=== PATIENT | female | born 1945 | race Caucasian/White ===

== ENCOUNTER 2023-06-05 10:33 | Emergency (ER) | payer MEDICARE, SELFPAY ==
[2023-06-05] VITALS (9 sets, daily range): BP systolic 176–189; BP diastolic 83–91; PULSE 85–92; RESP 14–18; TEMP 36.6; O2SAT 92–97; BMI 28.3
--- NOTE | 2023-06-05 10:57 | DI.CT.S_ITS ---
PROCEDURE: CT HEAD/BRAIN WO CON INDICATIONS: pain right post head / h/o HHT TECHNIQUE: Noncontrast 4.5 mm thick angled axial sections acquired from the foramen magnum to the vertex, with coronal and sagittal reformats. For radiation dose reduction, the following was used: automated exposure control, adjustment of mA and/or kV according to patient size. COMPARISON: None. FINDINGS: Image quality: Excellent. CSF spaces: Basal cisterns are patent. No extra-axial fluid collections. The ventricles are symmetric in size and shape. Brain: No intracranial bleeds or masses. There is cerebral volume loss for age, with resultant ventricular and sulcal prominence. There are moderate periventricular and deep white matter chronic small vessel ischemic changes. There is intracranial internal carotid artery atherosclerosis. Skull and face: Calvarium and visualized facial bones appear intact, without suspicious lesions. Sinuses: Visualized sinuses and mastoids are clear. IMPRESSION: 1. Age-related volume loss and moderate small vessel ischemic change. 2. No acute intracranial abnormality. Dictated by: Semaj Rust M.D. on 06/05/2023 at 11:09 Approved by: Semaj Rust M.D. on 06/05/2023 at 11:09
[2023-06-05] MEDS: methylPREDNISolone 125 MG/2 ML VIAL IV (11:58)
[2023-06-05 11:59] LABS: Add Manual Diff / Slide Review NO; Basophils Absolute Auto 0 /uL (0-100); Basophils Percent Auto 0.5 % (0-2); Eosinophils Absolute Auto 0 /uL (0-450); Eosinophils Percent Auto 0.6 % (2-4); Hematocrit 37.8 % (36-46); Hemoglobin 12.5 g/dL (12.0-16.0); Lymphocytes Absolute Auto 800 /uL (1100-4500); Mean Corpuscular HGB Conc 33.1 % (30-36); Mean Corpuscular Hemoglobin 32.9 PG (26-34); Mean Corpuscular Volume 99.3 fL (80-100); Monocytes Absolute Auto 500 /uL (0-900); Monocytes Percent Auto 8.6 % (3-14); Neutrophils Absolute Auto 4500 /uL (1500-7000); Neutrophils Percent Auto 76.3 % (50-75); Platelet Count 212 X10^3/uL (150-400); Red Blood Cell Count 3.81 X10^6/uL (4.0-5.2); Red Cell Distribution Width 15.5 % (11.6-14.8); White Blood Cell Count 5.9 X10^3/uL (4.5-11.0)
[2023-06-05] MEDS: diphenhydrAMINE 50 MG/ML VIAL 25 MG IV (12:00)
[2023-06-05] MEDS: FAMOTIDINE 20 MG/2 ML VIAL IV (12:02)
[2023-06-05 12:13] LABS: Blood Urea Nitrogen 14 mg/dL (7-17); Calcium 9.9 mg/dL (8.4-10.2); Carbon Dioxide 28 mmol/L (22-32); Chloride 102 mmol/L (98-107); Estimated Glomerular Filt Rate > 60 mL/min (>60); Glucose 124 mg/dL (80-110); HEMOLYSIS < 15 (0-50); Potassium 3.3 mmol/L (3.4-5.1); Sodium 137 mmol/L (137-145)
--- NOTE | 2023-06-05 12:43 | DI.CT.S_ITS ---
PROCEDURE: CT ANGIO HEAD AND NECK INDICATIONS: severe headache, hx of HHT TECHNIQUE: After the administration of intravenous contrast, 1 mm thick sections acquired from the aortic arch through the [place] of [place]. Post-contrast 4.5 mm thick sections then re-acquired from the foramen magnum to the vertex. 3-dimensional bdlploj-lcjzabnel-lisouqjdjr (MIP) and/or volume rendering reformats were acquired of the central intracranial vasculature and neck separately. For radiation dose reduction, the following was used: automated exposure control, adjustment of mA and/or kV according to patient size. COMPARISON: [facility], CT, CT HEAD/BRAIN WO CON, 06/05/2023, 11:04. FINDINGS: Image quality: Excellent. BRAIN: CSF spaces: Ventricles are normal in size and shape. Basal cisterns are patent. No extra-axial fluid collections. Brain: No midline shift. No intracranial bleeds or masses. Farfan-white matter interface appears intact. Age-related volume loss and moderate small vessel ischemic change. Skull and face: Calvarium and facial bones appear intact, without suspicious lesions. Orbits appear normal. Sinuses: Sinuses and mastoids are clear. HEAD CT ANGIOGRAPHY: Anterior circulation: Intracranial internal carotid arteries are normal in size and flow. The flow within the paired anterior cerebral arteries is normal and symmetric. The flow within the middle cerebral arteries is normal and symmetric. The anterior communicating artery is seen. No aneurysms are seen. Posterior circulation: Visualized portions of the vertebral arteries demonstrate normal caliber, and join to form a normal appearing basilar artery. Flow within the posterior cerebral arteries is normal and symmetric. No aneurysms are seen. NECK CT ANGIOGRAPHY: Carotid system: The great vessels demonstrate a conventional anatomy as they arise from the aortic arch. The origins of the common carotid arteries appear patent. The common carotid arteries demonstrate normal caliber and courses. The bifurcation regions are both widely patent. The internal carotid arteries demonstrate normal calibers and courses. Posterior circulation: The origins of the vertebral arteries both appear widely patent. The more superior extracranial portions of both vertebral arteries also demonstrate normal courses and calibers. They join to form a normal appearing basilar artery. Soft tissues: Visualized neck soft tissues demonstrate no suspicious abnormalities. Bones: No suspicious bony lesions. Visualized cervical spine appears normally aligned. IMPRESSION: 1. Age-related volume loss and moderate small vessel ischemic change. 2. No acute intracranial abnormality. 3. Unremarkable CTA head. No stenosis, aneurysm, occlusion, or focal filling defect. 4. Patent carotids. Any quantitative measurements of stenosis were performed using NASCET criteria. Dictated by: Semaj Rust M.D. on 06/05/2023 at 13:00 Approved by: Semaj Rust M.D. on 06/05/2023 at 13:03
[2023-06-05] MEDS: CYCLOBENZAPRINE 10 MG TABLET PO (13:58)
[2023-06-05] MEDS: LIDOCAINE PATCH 1 EACH ADH..PATCH TOP (13:59)
--- NOTE | 2023-06-06 06:09 | ED_ITS ---
HPI - Headache General Chief Complaint: Headache Stated Complaint: pain in the back of the head; physicial referral Time Seen by Provider: 06/05/23 11:16 Mode of arrival: Ambulatory History of Present Illness HPI Narrative: 78-year-old female nonsmoker with history of HHT presents with a chief complaint of a right posterior headache that has been present for the past few days. She was sent here by her primary care provider for evaluation. She states she has had no trauma or injury and takes no blood thinners. She denies any fever or chills. She denies associated symptoms such as dizziness, weakness or lightheadedness. She denies any lower extremity numbness, tingling or weakness. She has no blurred vision or trouble with speech. She states that she feels a sharp and stabbing pain in the right side of her neck and right side of her head that is worse when she turns her head to the left or if she touches the muscles of her neck. As noted she does have a history of HHT which has historically only presented in her nasal passages and has previously been addressed by ear nose and throat. She states that when present her pain is quite severe and when she can find the right position her symptoms essentially resolved Related Data Previous Rx's Medication Instructions Recorded cyclobenzaprine 10 mg tablet 10 mg PO TID PRN muscle spasm #14 06/05/23 tabs Allergies Allergy/AdvReac Type Severity Reaction Status Date / Time Iodinated Contrast Media Allergy Severe Hives Verified 06/05/23 10:52 aspirin Allergy Unknown Verified 06/05/23 10:52 cilastatin Allergy Unknown Verified 06/05/23 10:52 clindamycin Allergy Unknown Verified 06/05/23 10:52 imipenem Allergy Unknown Verified 06/05/23 10:52 levofloxacin [From Levaquin] Allergy Unknown Verified 06/05/23 10:52 NSAIDS (Non-Steroidal Allergy Unknown Verified 06/05/23 10:52 Anti-Inflamma oxycodone Allergy Unknown Verified 06/05/23 10:52 Penicillins Allergy Unknown Verified 06/05/23 10:52 Sulfa (Sulfonamide Allergy Unknown Verified 06/05/23 10:52 Antibiotics) succinylcholine AdvReac Unknown Verified 06/05/23 10:52 Review of Systems Review of Systems Narrative: GENERAL: See HPI HEENT: Denies sinus pain, ear pain, sore throat, difficulty swallowing, dizziness. RESPIRATORY: Denies dyspnea, cough, wheezing, hemoptysis, sputum. CARDIOVASCULAR: Denies chest pain, palpitations, orthopnea, edema, GASTROINTESTINAL: Denies nausea, vomiting, abdominal pain, diarrhea, constipation, melena. : Denies dysuria, frequency, incontinence, hematuria, urinary retention. MUSCULOSKELETAL: denies weakness, joint pain, or bony pain SKIN: Denies rash, skin lesions, or other NEUROLOGIC: See HPI PSYCHIATRIC: No concerning psychosocial issues. 12 point review of systems is negative except for those stated above Patient History Medical History HHT (hereditary hemorrhagic telangiectasia) Social History Smoking Status: Never smoker Smoking Status: Never smoker alcohol intake frequency: 0-2 drinks per day Substance Use Type: does not use Exam Narrative Exam Narrative: GENERAL: [78] year old patient appears stated age. Well-developed patient, in mild distress. GCS 15 HEAD: Atraumatic. Normocephalic. Tender to palpation at the nuchal ridge and along the distribution of right-sided paraspinal musculature EYES: Pupils equal round and reactive. Extraocular motions intact. No scleral icterus. No injection or drainage. ENT: Nose without bleeding, purulent drainage. Throat without erythema, tonsillar hypertrophy or exudate. Airway patent. NECK: Trachea midline. As noted above tender along the right-sided paraspinal musculature into their insertion at the right-sided nuchal ridge. No pain on left side of neck. Negative Kernig sign. CARDIOVASCULAR: Regular rate and rhythm without murmurs, gallops, or rubs. RESPIRATORY: Clear to auscultation. Breath sounds equal bilaterally. No wheezes, rales, or rhonchi. GASTROINTESTINAL: Abdomen soft, non-tender, nondistended. EXTREMITIES: No edema or joint tenderness. BACK: Nontender without deformity or crepitance. No flank tenderness. NEURO: AOx3. SKIN: No rash or erythema of visible areas NIH Stroke Scale 1a. LOC: Patient is alert and keenly responsive (0) 1b. LOC Questions: Patient answers both LOC questions accurately (0) 1c. LOC Commands: Patient performs both tasks correctly (0) 2. Best Gaze: Normal (0) 3. Visual: No visual loss (0) 4. Facial palsy: Normal symmetrical movements (0) 5. Motor arm: No drift (0) 6. Motor leg: No drift (0) 7. Limb ataxia: Absent (0) 8. Sensory: Normal (0) 9. Best language: No aphasia; normal (0) 10. Dysarthria: Normal (0) 11. Extinction and inattention: No abnormality (0) NIHSS: 0 Initial Vital Signs Initial Vital Signs: Vital Signs Temperature 97.8 F 06/05/23 10:44 Pulse Rate 92 H 06/05/23 10:44 Respiratory Rate 14 06/05/23 10:44 Blood Pressure 189/83 H 06/05/23 10:44 Pulse Oximetry 97 06/05/23 10:44 Oxygen Delivery Method Room Air 06/05/23 10:44 Course Orders Ordered: Discontinued Medications Cyclobenzaprine HCl (Cyclobenzaprine 10 Mg Tablet) 10 mg PO NOW ONE Stop: 06/05/23 13:47 Last Admin: 06/05/23 13:58 Dose: 10 mg Documented By: ANALIA Diphenhydramine HCl (Diphenhydramine 50 Mg/Ml Vial) 25 mg IV NOW ONE Stop: 06/05/23 11:35 Last Admin: 06/05/23 12:00 Dose: 25 mg Documented By: BERTO Famotidine (Famotidine 20 Mg/2 Ml Vial) 20 mg IV NOW MICHAEL Last Admin: 06/05/23 12:02 Dose: 20 mg Documented By: BERTO Lidocaine (Lidocaine Patch 1 Each Adh..Patch) 1 each TOP NOW ONE Stop: 06/05/23 13:47 Last Admin: 06/05/23 13:59 Dose: 1 each Documented By: ANALIA Methylprednisolone (Methylprednisolone 125 Mg/2 Ml Vial) 125 mg IV NOW ONE Stop: 06/05/23 11:35 Last Admin: 06/05/23 11:58 Dose: 125 mg Documented By: BERTO MDM - Headache Lab Data 06/05/23 11:49 06/05/23 11:49 Labs: Lab Results 06/05/23 06/05/23 Range/Units 11:49 11:49 WBC 5.9 (4.5-11.0) X10^3/uL RBC 3.81 L (4.0-5.2) X10^6/uL Hgb 12.5 (12.0-16.0) g/dL Hct 37.8 (36-46) % MCV 99.3 (80-100) fL MCH 32.9 (26-34) PG MCHC 33.1 (30-36) % RDW 15.5 H (11.6-14.8) % Plt Count 212 (150-400) X10^3/uL Neut % (Auto) 76.3 H (50-75) % Lymph % (Auto) 14.0 L (25-40) % [place] % (Auto) 8.6 (3-14) % Eos % (Auto) 0.6 L (2-4) % Baso % (Auto) 0.5 (0-2) % Neut # (Auto) 4500 (9508-0864) /uL Lymph # (Auto) 800 L (7588-0484) /uL [place] # (Auto) 500 (0-900) /uL Eos # (Auto) 0 (0-450) /uL Baso # (Auto) 0 (0-100) /uL Sodium 137 (137-145) mmol/L Potassium 3.3 L (3.4-5.1) mmol/L Chloride 102 (98-107) mmol/L Carbon Dioxide 28 (22-32) mmol/L BUN 14 (7-17) mg/dL Creatinine 0.61 (0.52-1.04) mg/dL Estimated GFR > 60 (>60) mL/min BUN/Creatinine Ratio 23.0 H (6-22) Glucose 124 H (80-110) mg/dL Calcium 9.9 (8.4-10.2) mg/dL [facility] Narrative Medical decision making narrative: [78] year old patient presents with right occipital headache Multiple etiologies for patient's symptoms considered including, but not limited to: [Intracranial hemorrhage versus meningitis versus musculoskeletal and tension type headache versus other] Headache considerations include, but not limited to: Subarachnoid hemorrhage, but unlikely as patient denies sudden onset of pain, not worst of life, or neck pain Meningitis considered, but thought unlikely given lack of Brudzinski's, Kernig's sign, altered mental status or fever Giant cell arteritis considered, but thought unlikely given lack of unilateral findings, pain in yazdanism, vision change HTN Emergency considered, but thought unlikely given normal vitals Other serious diagnoses considered unlikely given lack of red flag findings such as sudden onset, increasing frequency, immunocompromise, systemic signs (fever, chills, stiff neck, or rash), focal neurologic findings, trauma, blood thinners, etc. Prior Charts reviewed in our EMR Primary Historian: patient Labs reviewed and interpreted by myself: No leukocytosis or left shift, no signs of anemia. Very slightly decreased potassium at 3.3 Imaging reviewed: CT of the head along with CT angiography of head and neck are unremarkable Patient's symptoms improved over duration of stay with above-stated therapies. Multiple diagnoses considered as noted above, however patient's history and physical exam is quite reassuring and significant red flags are not present. Patient does have neck pain but it is isolated to the right side of her neck and is reproducible on palpation along the distribution of paraspinal musculature into its occipital insertion. When palpating this location it reproduces the headache that brought the patient in. Muscle spasm resulting in some element of tension headache is the most likely cause at this point in time. Due to her ch ronic medical history there are some medication limitations. We did discuss the use of various topicals, Tylenol and the potential utility of muscle relaxers. Patient and understand and agree with the diagnosis and plan Findings and discharge diagnosis discussed with patient/family followed by verbalization of understanding Return precautions discussed with patient/family whom verbalize understanding of diagnosis and plan Discharge Plan Departure Patient Disposition: Home Clinical Impression: Tension headache Instructions: Tension Headache Activity Restrictions/Additional Instructions: *You have been diagnosed with [headache. As we discussed your history and physical exam are very reassuring and there is no evidence of bleeding in your brain, meningitis, dissection, aneurysm or other significant finding that would require a specific or immediate intervention] *What to do: *Please continue to take your regular medications as directed. [ x] New medication prescriptions sent to your pharmacy: [[facility] ] [ ] New medication written as a paper prescription [ ] No new medications given *Please follow up with your primary care provider in 2-3 days, call for an appointment. Let them know you were seen in the Emergency Department and that we ask that you be seen in follow up. We will electronically transmit a record of today's note if your PCP is in our system *Return to Emergency Department if you should have any new, worsening or concerning symptoms, such as [fever greater than 101 F, shaking chills, worsening pain, persistent vomiting or other bothersome symptoms] Prescriptions: New cyclobenzaprine 10 mg tablet 10 mg PO TID PRN (Reason: muscle spasm) Qty: 14 0RF Referrals: Ela Hernandez MD [Primary Care Provider] - Stand Alone Forms: Patient Portal/API
== END 2023-06-05 14:16 | disposition home or self-care (01) ==
PROVIDERS: Emergency Provider Emergency Medicine; PCP Student in an Organized Health Care Education/Training Program
DX: G44.209 Tension-type headache, unspecified, not intractable (principal)
CPT/HCPCS: 36415; 70450; 70496; 70498; 80048; 85025; 96374; 96375; 99284; J1200; J2930; Q9967

== ENCOUNTER 2025-09-24 07:03 | Inpatient (IN) | payer MEDICARE, SELFPAY ==
[2025-09-24] VITALS (51 sets, daily range): BP systolic 106–173; BP diastolic 56–86; PULSE 64–128; RESP 12–25; TEMP 36.3–36.8; O2SAT 88–99; BMI 26.5
--- NOTE | 2025-09-24 07:06 | EKG_ITS ---
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
--- NOTE | 2025-09-24 07:06 | DI.RAD.S_ITS ---
PROCEDURE: XR CHEST 1V INDICATIONS: Chest Pain TECHNIQUE: One view of the chest was acquired. COMPARISON: None. FINDINGS: Surgical changes and devices: None. Lungs and pleura: Lungs are clear. No pleural effusions or pneumothorax. Mediastinum: Mediastinal contours appear normal. Heart size is normal. Bones and chest wall: No suspicious bony lesions. Overlying soft tissues appear unremarkable. IMPRESSION: No acute cardiopulmonary abnormality is seen. Dictated by: Colton Mina M.D. on 09/24/2025 at 7:53 Approved by: Colton Mina M.D. on 09/24/2025 at 14:03
--- NOTE | 2025-09-24 07:22 | ED_ITS ---
HPI - Chest Pain General Chief Complaint: Chest Pain Stated Complaint: Poss Heart Attack, Chest Pain, numbness Time Seen by Provider: 09/24/25 07:12 Source: patient Mode of arrival: Ambulatory Limitations: no limitations History of Present Illness HPI narrative: 80-year-old woman with a history of hypertension, hyperlipidemia and no prior history of known cardiac disease. She awoke this morning around 630 with substernal chest pain she describes as a tight squeezing pressure radiating up into her left shoulder and left jaw. She states over the last couple of days she has not felt particularly well perhaps experiencing some exertional dyspnea when questioned specifically. No orthopnea, lower extremity edema, no fever, cough, chills, nausea, vomiting, diarrhea. Related Data Previous Rx's ?Medication ?Instructions ?Recorded cyclobenzaprine 10 mg tablet 10 mg PO TID PRN muscle s pasm #14 06/05/23 tabs Allergies Allergy/AdvReac Type Severity Reaction Status Date / Time Iodinated Contrast Media Allergy Severe Hives Verified 09/24/25 07:10 aspirin Allergy Unknown Verified 09/24/25 07:10 cilastatin Allergy Unknown Verified 09/24/25 07:10 clindamycin Allergy Unknown Verified 09/24/25 07:10 imipenem Allergy Unknown Verified 09/24/25 07:10 levofloxacin (From Levaquin) Allergy Unknown Verified 09/24/25 07:10 NSAIDS (Non-Steroidal Allergy Unknown Verified 09/24/25 07:10 Anti-Inflamma oxycodone Allergy Unknown Verified 09/24/25 07:10 Penicillins Allergy Unknown Verified 09/24/25 07:10 Sulfa (Sulfonamide Allergy Unknown Verified 09/24/25 07:10 Antibiotics) succinylcholine AdvReac Unknown Verified 09/24/25 07:10 Review of Systems Review of Systems Narrative: Pertinent positive and negative findings as per HPI Patient History Medical History (Updated 09/24/25 @ 12:52 by Sury Kramer MD) Hypertension HHT (hereditary hemorrhagic telangiectasia) Social History Smoking Status: Never smoker Smoking Status: Never smoker alcohol intake frequency: 0-2 drinks per day Exam Initial Vital Signs Initial Vital Signs: Vital Signs Pulse Rate 128 H 09/24/25 07:07 Pulse Oximetry 94 09/24/25 07:07 General: Looks like she feels unwell but she is not acutely toxic, she is able to speak in full sentences and cooperate fully with exam and history HEENT: Moist mucous membranes, normal sclera with reactive pupils, Respiratory: Lungs are clear to auscultation, no wheezing no rales no rhonchi. Full and symmetrical air movement Cardiac: Regular rate and rhythm no murmurs Abdomen: Soft, nontender, no rebound or guarding, no flank pain Skin: Slightly pale but otherwise Warm and dry, Neurologic: Grossly neurologically intact with no obvious asymmetries or abnormalities Extremities: No trauma, well perfused Psych: Cooperative, appropriate insight and affect Course Orders Ordered: ED Orders 09/24/25 07:06 XR chest 1V Stat EKG-12 Lead Stat 09/24/25 07:12 Complete Blood Count AUTO DIFF Stat Comprehensive Metabolic Panel Stat Lipase Stat Magnesium Stat NT-proBNP (BNP-Adult 18+) Stat PTT Partial Thromboplastin [place] Stat Prothrombin Time INR Stat Troponin & CK Cardiac Panel Stat 09/24/25 09:09 Troponin I Stat 09/24/25 11:24 Consult to Cardiology Stat Acetaminophen (Acetaminophen 325 Mg Tablet) 650 mg PO Q6H PRN PRN Reason: Fever/Mild Pain (1-3) Aspirin (Aspirin Ec 81 Mg Tablet) 81 mg PO DAILY [facility] Last Admin: 09/24/25 12:25 Dose: Not Given Documented By: TAYO Atorvastatin Calcium (Atorvastatin 20 Mg Tablet) 40 mg PO BEDTIME MICHAEL Morphine Sulfate (Morphine 2 Mg/Ml Inj) 2 mg IV Q5MIN PRN PRN Reason: Chest Pain Last Admin: 09/24/25 07:28 Dose: 2 mg Documented By: TAYO Naloxone HCl (Naloxone 0.4 Mg/Ml Vial) 0.2 mg IV Q2MIN PRN PRN Reason: Opiate Reversal Discontinued Medications Aspirin (Aspirin 81 Mg Chew Tab) 324 mg PO NOW ONE Stop: 09/24/25 07:24 Last Admin: 09/24/25 07:27 Dose: 324 mg Documented By: TAYO Metoprolol Tartrate (Metoprolol Tartrate 5 Mg/5 Ml Inj) 5 mg IV Q5M [facility] Stop: 09/24/25 07:41 Last Admin: 09/24/25 09:16 Dose: Not Given Documented By: Admin: 09/24/25 09:15 Dose: Not Given Documented By: Admin: 09/24/25 07:29 Dose: 5 mg Documented By: TAYO Nitroglycerin (Nitroglycerin 0.4 Mg Sl Tab) 0.4 mg SL [id number] PRN PRN Reason: Chest Pain Last Admin: 09/24/25 07:45 Dose: 0.4 mg Documented By: Admin: 09/24/25 07:38 Dose: 0.4 mg Documented By: Admin: 09/24/25 07:30 Dose: 0.4 mg Documented By: TAYO Vital Signs Vital signs: Vital Signs - 8 hr 09/24/25 07:07 09/24/25 07:08 09/24/25 07:08 Temperature Pulse Rate 128 H 117 H Respiratory Rate Blood Pressure 168/79 H Pulse Oximetry 94 93 Oxygen Delivery Method Oxygen Flow Rate 09/24/25 07:10 09/24/25 07:14 09/24/25 07:14 Temperature 97.3 F L Pulse Rate 117 H 108 H Respiratory Rate 20 19 Blood Pressure 168/79 H 161/81 H Pulse Oximetry 95 92 Oxygen Delivery Method Room Air Oxygen Flow Rate 09/24/25 07:30 09/24/25 07:30 09/24/25 07:30 Temperature Pulse Rate 101 H 101 H Respiratory Rate 24 Blood Pressure 157/80 H 157/80 H Pulse Oximetry 96 Oxygen Delivery Method Oxygen Flow Rate 09/24/25 07:32 09/24/25 07:32 09/24/25 07:35 Temperature Pulse Rate 108 H Respiratory Rate 15 Blood Pressure 151/85 H 119/61 Pulse Oximetry 95 Oxygen Delivery Method Oxygen Flow Rate 09/24/25 07:35 09/24/25 07:38 09/24/25 07:40 Temperature Pulse Rate 103 H 82 Respiratory Rate 15 Blood Pressure 119/61 118/60 Pulse Oximetry 96 Oxygen Delivery Method Oxygen Flow Rate 09/24/25 07:40 09/24/25 07:45 09/24/25 07:45 Temperature Pulse Rate 87 76 Respiratory Rate 17 Blood Pressure 107/61 106/56 L Pulse Oximetry 88 L Oxygen Delivery Method Oxygen Flow Rate 09/24/25 07:45 09/24/25 07:46 09/24/25 07:46 Temperature Pulse Rate 78 80 Respiratory Rate 16 22 Blood Pressure 107/61 Pulse Oximetry 92 90 L Oxygen Delivery Method Oximask Oximask Oxygen Flow Rate 2 2 09/24/25 07:50 09/24/25 07:50 09/24/25 07:55 Temperature Pulse Rate 78 Respiratory Rate 25 H Blood Pressure 114/58 L 106/61 Pulse Oximetry 93 Oxygen Delivery Method Oxygen Flow Rate 09/24/25 07:55 09/24/25 08:00 09/24/25 08:00 Temperature Pulse Rate 76 73 Respiratory Rate 16 16 Blood Pressure 112/66 Pulse Oximetry 96 97 Oxygen Delivery Method Oximask Oxygen Flow Rate 2 09/24/25 08:05 09/24/25 08:05 09/24/25 08:10 Temperature Pulse Rate 70 Respiratory Rate 15 Blood Pressure 114/71 119/63 Pulse Oximetry 98 Oxygen Delivery Method Oximask Oxygen Flow Rate 2 09/24/25 08:10 09/24/25 08:15 09/24/25 08:15 Temperature Pulse Rate 67 67 Respiratory Rate 15 23 Blood Pressure 119/70 Pulse Oximetry 99 99 Oxygen Delivery Method Oxygen Flow Rate 09/24/25 08:19 09/24/25 08:20 09/24/25 08:20 Temperature Pulse Rate 68 67 Respiratory Rate 15 12 Blood Pressure 119/63 Pulse Oximetry 98 98 Oxygen Delivery Method Oximask Oxygen Flow Rate 2 09/24/25 08:25 09/24/25 08:25 09/24/25 08:30 Temperature Pulse Rate 66 65 Respiratory Rate 16 14 Blood Pressure 112/60 Pulse Oximetry 99 99 Oxygen Delivery Method Room Air Oxygen Flow Rate 09/24/25 08:35 09/24/25 08:35 09/24/25 08:40 Temperature Pulse Rate 64 Respiratory Rate 14 Blood Pressure 113/63 115/59 L Pulse Oximetry 99 Oxygen Delivery Method Room Air Oxygen Flow Rate 09/24/25 08:40 09/24/25 08:45 09/24/25 08:45 Temperature Pulse Rate 65 64 Respiratory Rate 12 16 Blood Pressure 116/63 Pulse Oximetry 99 99 Oxygen Delivery Method Oxygen Flow Rate 09/24/25 08:50 09/24/25 08:50 09/24/25 08:55 Temperature Pulse Rate 65 Respiratory Rate 12 Blood Pressure 119/66 151/78 H Pulse Oximetry 99 Oxygen Delivery Method Room Air Oxygen Flow Rate 09/24/25 08:55 09/24/25 09:00 09/24/25 09:00 Temperature Pulse Rate 73 69 Respiratory Rate 20 14 Blood Pressure 136/68 Pulse Oximetry 97 98 Oxygen Delivery Method Oxygen Flow Rate 09/24/25 09:05 09/24/25 09:05 09/24/25 09:10 Temperature Pulse Rate 67 71 Respiratory Rate 17 15 Blood Pressure 134/72 Pulse Oximetry 97 97 Oxygen Delivery Method Room Air Oxygen Flow Rate 09/24/25 09:10 09/24/25 09:15 09/24/25 09:15 Temperature Pulse Rate 69 Respiratory Rate 12 Blood Pressure 137/75 137/73 Pulse Oximetry 98 Oxygen Delivery Method Oxygen Flow Rate 09/24/25 09:20 09/24/25 09:20 09/24/25 09:25 Temperature Pulse Rate 68 Respiratory Rate 15 Blood Pressure 133/67 138/75 Pulse Oximetry 99 Oxygen Delivery Method Room Air Oxygen Flow Rate 09/24/25 09:25 09/24/25 09:30 09/24/25 09:35 Temperature Pulse Rate 69 67 Respiratory Rate 19 18 Blood Pressure 126/70 Pulse Oximetry 99 99 Oxygen Delivery Method Oxygen Flow Rate 09/24/25 09:35 09/24/25 09:40 09/24/25 09:40 Temperature Pulse Rate 68 71 Respiratory Rate 15 17 Blood Pressure 131/73 Pulse Oximetry 98 98 Oxygen Delivery Method Room Air Oxygen Flow Rate 09/24/25 09:45 09/24/25 09:45 09/24/25 10:00 Temperature Pulse Rate 71 Respiratory Rate 13 Blood Pressure 134/81 165/75 H Pulse Oximetry 98 Oxygen Delivery Method Oxygen Flow Rate 09/24/25 10:00 09/24/25 10:15 09/24/25 10:15 Temperature Pulse Rate 74 79 Respiratory Rate 20 16 Blood Pressure 158/81 H Pulse Oximetry 97 94 Oxygen Delivery Method Oxygen Flow Rate 09/24/25 10:30 09/24/25 10:30 09/24/25 10:45 Temperature Pulse Rate 78 Respiratory Rate 16 Blood Pressure 146/75 H 146/82 H Pulse Oximetry 96 Oxygen Delivery Method Oxygen Flow Rate 09/24/25 10:45 09/24/25 11:00 09/24/25 11:00 Temperature Pulse Rate 78 80 Respiratory Rate 17 20 Blood Pressure 146/76 H Pulse Oximetry 95 95 Oxygen Delivery Method Oxygen Flow Rate 09/24/25 11:15 09/24/25 11:15 09/24/25 11:30 Temperature Pulse Rate 78 Respiratory Rate 17 Blood Pressure 145/81 H 150/82 H Pulse Oximetry 97 Oxygen Delivery Method Oxygen Flow Rate 09/24/25 11:30 09/24/25 11:45 09/24/25 11:45 Temperature Pulse Rate 78 78 Respiratory Rate 17 18 Blood Pressure 155/74 H Pulse Oximetry 97 97 Oxygen Delivery Method Oxygen Flow Rate 09/24/25 12:00 09/24/25 12:00 Temperature Pulse Rate 79 Respiratory Rate 21 Blood Pressure 143/85 H Pulse Oximetry 96 Oxygen Delivery Method Oxygen Flow Rate MDM - Chest Pain Lab Data 09/24/25 07:12 09/24/25 07:12 Labs: Lab Results 09/24/25 09/24/25 Range/Units 07:12 09:09 WBC 5.3 (4.5-11.0) X10^3/uL RBC 4.22 (4.0-5.2) X10^6/uL Hgb 13.8 (12.0-16.0) g/dL Hct 41.6 (36-46) % MCV 98.6 (80-100) fL MCH 32.8 (26-34) PG MCHC 33.3 (30-36) % RDW 14.9 H (11.6-14.8) % Plt Count 279 (150-400) X10^3/uL Neut % (Auto) 62.0 (50-75) % Lymph % (Auto) 29.3 (25-40) % Davison % (Auto) 6.4 (3-14) % Eos % (Auto) 1.6 L (2-4) % Baso % (Auto) 0.7 (0-2) % Neut # (Auto) 3300 (9166-9275) /uL Lymph # (Auto) 1600 (8492-7840) /uL Davison # (Auto) 300 (0-900) /uL Eos # (Auto) 100 (0-450) /uL Baso # (Auto) 0 (0-100) /uL PT 9.7 (9.4-12.5) SECONDS INR 0.9 (0.9-1.3) APTT 28 (25.1-36.5) SECONDS Sodium 139 (137-145) mmol/L Potassium 3.7 (3.4-5.1) mmol/L Chloride 106 (98-107) mmol/L Carbon Dioxide 23 (22-32) mmol/L BUN 14 (7-17) mg/dL Creatinine 0.69 (0.52-1.04) mg/dL Estimated GFR > 60 (>60) mL/min BUN/Creatinine Ratio 20.3 (6-22) Glucose 133 H (70-99) mg/dL Calcium 10.3 H (8.4-10.2) mg/dL Magnesium 1.7 (1.6-2.3) mg/dL Total Bilirubin 0.4 (0.2-1.3) mg/dL AST 34 (14-36) IU/L ALT 22 (<35) IU/L Alkaline Phosphatase 101 (38-126) U/L Total Creatine Kinase 31 (30-135) U/L Troponin I < 0.012 < 0.012 (0.01-0.034) ng/mL NT-Pro-B Natriuret Pep 49 (<450) pg/mL Total Protein 8.1 (6.3-8.2) g/dL Albumin 4.9 (3.5-5.0) g/dL Globulin 3.2 (1.7-4.1) g/dL Albumin/Globulin Ratio 1.5 (1.0-2.8) Lipase 50 (23-300) U/L MDM Narrative Medical decision making narrative: CC: Chest pain Complicating co-morbidities: Hypertension, hereditary telangiectasias Data collected from: patient Medical records reviewed: No records immediately available Differential considered: Acute coronary syndrome, cardiac symptoms secondary to severe anemia due to 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 Appears unwell but exam is otherwise benign Lab Test results independently reviewed as above. Pertinent findings: CBC is unremarkable Chemistries are notable for calcium minimally elevated at 10.3 1st and 2nd troponins are unremarkable Coagulopathy studies are unremarkable Independently reviewed EKG: Sinus tach at 109 poor baseline no obvious ischemia Imaging studies independently reviewed: Chest x-ray is unremarkable Consultations: Dr. San, cardiology. Agrees with hospitalization, rule out and stress test tomorrow Treatments: Aspirin, nitroglycerin, morphine, metoprolol, re-evaluate, EKG needs to be repeated Re-evaluations: Findings including initial negative EKG and normal troponin are reviewed with the patient. Explain need for 2nd troponin. Discussion: 80-year-old woman presents with very concerning history for cardiac related chest pain. Acute onset substernal radiating to jaw and shoulder. Relieved with nitroglycerin, heart rate has slowed with metoprolol. On re- evaluation at time of 2nd troponin being drawn she has minimal pain in the left shoulder the chest pain and jaw pain have resolved. We will place some topical nitrates. Pain is completely resolved after the nitrites. Reviewed with her findings and concerning history. Current heart score equals 4. We will discuss with hospitalist service and plan for admission Discharge Plan Departure Patient Disposition: Admitted as Observation Clinical Impression: Chest pain Qualifiers: Chest pain type: unspecified Qualified Code(s): R07.9 - Chest pain, unspecified Admit Date/Time: 09/24/25 12:07 Admit Provider: Francisco England
[2025-09-24 07:25] LABS: Add Manual Diff / Slide Review NO; Hematocrit 41.6 % (36-46); Hemoglobin 13.8 g/dL (12.0-16.0); Lymphocytes Absolute Auto 1600 /uL (1100-4500); Mean Corpuscular HGB Conc 33.3 % (30-36); Mean Corpuscular Hemoglobin 32.8 PG (26-34); Mean Corpuscular Volume 98.6 fL (80-100); Platelet Count 279 X10^3/uL (150-400)
[2025-09-24] MEDS: ASPIRIN 81 MG CHEW TAB 324 MG PO (07:27)
[2025-09-24] MEDS: MORPHINE 2 MG/ML INJ IV ×2 (07:28→16:14)
[2025-09-24] MEDS: METOPROLOL TARTRATE 5 MG/5 ML INJ IV (07:29)
[2025-09-24 07:30] LABS: INR 0.9 (0.9-1.3); Prothrombin Time 9.7 SECONDS (9.4-12.5)
[2025-09-24] MEDS: NITROGLYCERIN 0.4 MG SL TAB SL ×4 (07:30→16:14)
[2025-09-24 07:33] LABS: PTT Partial Thromboplastin Tim 28 SECONDS (25.1-36.5)
[2025-09-24 07:34] LABS: Alanine Aminotransferase 22 IU/L (<35); Albumin 4.9 g/dL (3.5-5.0); Albumin Globulin Ratio 1.5 (1.0-2.8); Alkaline Phosphatase 101 U/L (38-126); Blood Urea Nitrogen 14 mg/dL (7-17); Calcium 10.3 mg/dL (8.4-10.2); Carbon Dioxide 23 mmol/L (22-32); Chloride 106 mmol/L (98-107); Creatine Kinase 31 U/L (30-135); Estimated Glomerular Filt Rate > 60 mL/min (>60); Globulin 3.2 g/dL (1.7-4.1); Glucose 133 mg/dL (70-99); HEMOLYSIS 24 (0-50); Lipase 50 U/L (23-300); Magnesium 1.7 mg/dL (1.6-2.3); Potassium 3.7 mmol/L (3.4-5.1); Sodium 139 mmol/L (137-145); Total Protein 8.1 g/dL (6.3-8.2)
[2025-09-24 07:46] LABS: NT-proBNP (BNP-Adult 18+) 49 pg/mL (<450); Troponin I < 0.012 ng/mL (0.01-0.034)
[2025-09-24 09:41] LABS: Troponin I < 0.012 ng/mL (0.01-0.034)
--- NOTE | 2025-09-24 12:11 | P.HP_ITS ---
History of Present Illness History of Present Illness Chief complaint: Poss Heart Attack, Chest Pain, numbness Narrative: She was a pleasant 80-year-old female with no known history of CAD or AK. She developed acute substernal chest pain with radiation to neck and arm this morning. This was persistent and prompted her to come to the ER. There her pain improved with nitroglycerin and morphine. She notes that she was usually physically active but recently has had more dyspnea with exertion. She was chronic pedal edema. She does not recall stress tests in the past. Her initial troponin and ECG were reassuring in the ED. she does have a history of gastroesophageal reflux, but denies prominent symptoms this morning. She was at rest this morning when the symptoms did occur. She lives in [place] with her . 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 She was given aspirin in the ED. ED: Morphine and nitro given. Chest x-ray unremarkable. ECG nonacute, septal Q-waves. Social history: Nonsmoker. ROS: All else reviewed and otherwise unremarkable except as noted in the history and physical. O: NAD, alert and oriented, fluent speech, calm. Normocephalic skull, EOMI, anicteric sclera, symmetric pupils. Oropharynx unremarkable, no droop. Neck supple, midline trachea, no adenopathy. Lungs clear, normal rate and effort. Heart regular, no murmur gallop or rub. Abdomen is soft, non distended and non tender. Extremities are free of edema. Skin is free of rash or lesions. Joints are not swollen or deformed. Judgment appears to be normal. ECG: Intervals [place]e Rate: 109 P: 70 ME: 196 QRS: -3 QRSD: 68 T: 74 QT: 342 QTc: 460 Interpretive Statements Sinus tachycardia Anteroseptal infarct , age undetermined IMAGING: CXR: Cardiomegaly and mild interstitial prominence by my read. A/P: 1. Chest pain, improved with nitro and morphine. 2. Hypertension, active. 3. Hyperlipidemia, active. PLAN: -stress testing not available over the weekend. -aspirin and atorvastatin. -trend troponins Q 8 hours. -echo to assess LV function and rule out focal wall motion abnormalities. -cardiology consult. Anticipate 1 midnight in the hospital, supports observation status. Full resuscitation is proxy. [facility] Medical History Hypertension HHT (hereditary hemorrhagic telangiectasia) Social History household members: spouse Smoking Status: Never smoker alcohol intake: current Meds Home Medications and Allergies Home Medications ?Medication ?Instructions ?Recorded ?Confirmed ?Type benazepril 5 mg tablet 5 mg PO DAILY 09/24/2509/24 History felodipine 5 mg tablet,extended 5 mg PO DAILY 09/24/25 09/24/25 History release 24 hr rosuvastatin 5 mg tablet 5 mg PO DAILY 09/24/2509/24 History Allergies Allergy/AdvReac Type Severity Reaction Status Date / Time Iodinated Contrast Media Allergy Severe Hives Verified 09/24/25 07:10 aspirin Allergy Unknown Verified 09/24/25 07:10 cilastatin Allergy Unknown Verified 09/24/25 07:10 clindamycin Allergy Unknown Verified 09/24/25 07:10 imipenem Allergy Unknown Verified 09/24/25 07:10 levofloxacin (From Levaquin) Allergy Unknown Verified 09/24/25 07:10 NSAIDS (Non-Steroidal Allergy Unknown Verified 09/24/25 07:10 Anti-Inflamma oxycodone Allergy Unknown Verified 09/24/25 07:10 Penicillins Allergy Unknown Verified 09/24/25 07:10 Sulfa (Sulfonamide Allergy Unknown Verified 09/24/25 07:10 Antibiotics) succinylcholine AdvReac Unknown Verified 09/24/25 07:10 Exam Vital Signs (past 8 hours): - 09/24/25 07:07 09/24/25 07:08 09/24/25 07:08 Temperature Pulse Rate 128 H 117 H Respiratory Rate Blood Pressure 168/79 H Pulse Oximetry 94 93 Oxygen Delivery Method Oxygen Flow Rate 09/24/25 07:10 09/24/25 07:14 09/24/25 07:14 Temperature 97.3 F L Pulse Rate 117 H 108 H Respiratory Rate 20 19 Blood Pressure 168/79 H 161/81 H Pulse Oximetry 95 92 Oxygen Delivery Method Room Air Oxygen Flow Rate 09/24/25 07:30 09/24/25 07:30 09/24/25 07:30 Temperature Pulse Rate 101 H 101 H Respiratory Rate 24 Blood Pressure 157/80 H 157/80 H Pulse Oximetry 96 Oxygen Delivery Method Oxygen Flow Rate 09/24/25 07:32 09/24/25 07:32 09/24/25 07:35 Temperature Pulse Rate 108 H Respiratory Rate 15 Blood Pressure 151/85 H 119/61 Pulse Oximetry 95 Oxygen Delivery Method Oxygen Flow Rate 09/24/25 07:35 09/24/25 07:38 09/24/25 07:40 Temperature Pulse Rate 103 H 82 Respiratory Rate 15 Blood Pressure 119/61 118/60 Pulse Oximetry 96 Oxygen Delivery Method Oxygen Flow Rate 09/24/25 07:40 09/24/25 07:45 09/24/25 07:45 Temperature Pulse Rate 87 76 Respiratory Rate 17 Blood Pressure 107/61 106/56 L Pulse Oximetry 88 L Oxygen Delivery Method Oxygen Flow Rate 09/24/25 07:45 09/24/25 07:46 09/24/25 07:46 Temperature Pulse Rate 78 80 Respiratory Rate 16 22 Blood Pressure 107/61 Pulse Oximetry 92 90 L Oxygen Delivery Method Oximask Oximask Oxygen Flow Rate 2 2 09/24/25 07:50 09/24/25 07:50 09/24/25 07:55 Temperature Pulse Rate 78 Respiratory Rate 25 H Blood Pressure 114/58 L 106/61 Pulse Oximetry 93 Oxygen Delivery Method Oxygen Flow Rate 09/24/25 07:55 09/24/25 08:00 09/24/25 08:00 Temperature Pulse Rate 76 73 Respiratory Rate 16 16 Blood Pressure 112/66 Pulse Oximetry 96 97 Oxygen Delivery Method Oximask Oxygen Flow Rate 2 09/24/25 08:05 09/24/25 08:05 09/24/25 08:10 Temperature Pulse Rate 70 Respiratory Rate 15 Blood Pressure 114/71 119/63 Pulse Oximetry 98 Oxygen Delivery Method Oximask Oxygen Flow Rate 2 09/24/25 08:10 09/24/25 08:15 09/24/25 08:15 Temperature Pulse Rate 67 67 Respiratory Rate 15 23 Blood Pressure 119/70 Pulse Oximetry 99 99 Oxygen Delivery Method Oxygen Flow Rate 09/24/25 08:19 09/24/25 08:20 09/24/25 08:20 Temperature Pulse Rate 68 67 Respiratory Rate 15 12 Blood Pressure 119/63 Pulse Oximetry 98 98 Oxygen Delivery Method Oximask Oxygen Flow Rate 2 09/24/25 08:25 09/24/25 08:25 09/24/25 08:30 Temperature Pulse Rate 66 65 Respiratory Rate 16 14 Blood Pressure 112/60 Pulse Oximetry 99 99 Oxygen Delivery Method Room Air Oxygen Flow Rate 09/24/25 08:35 09/24/25 08:35 09/24/25 08:40 Temperature Pulse Rate 64 Respiratory Rate 14 Blood Pressure 113/63 115/59 L Pulse Oximetry 99 Oxygen Delivery Method Room Air Oxygen Flow Rate 09/24/25 08:40 09/24/25 08:45 09/24/25 08:45 Temperature Pulse Rate 65 64 Respiratory Rate 12 16 Blood Pressure 116/63 Pulse Oximetry 99 99 Oxygen Delivery Method Oxygen Flow Rate 09/24/25 08:50 09/24/25 08:50 09/24/25 08:55 Temperature Pulse Rate 65 Respiratory Rate 12 Blood Pressure 119/66 151/78 H Pulse Oximetry 99 Oxygen Delivery Method Room Air Oxygen Flow Rate 09/24/25 08:55 09/24/25 09:00 09/24/25 09:00 Temperature Pulse Rate 73 69 Respiratory Rate 20 14 Blood Pressure 136/68 Pulse Oximetry 97 98 Oxygen Delivery Method Oxygen Flow Rate 09/24/25 09:05 09/24/25 09:05 09/24/25 09:10 Temperature Pulse Rate 67 71 Respiratory Rate 17 15 Blood Pressure 134/72 Pulse Oximetry 97 97 Oxygen Delivery Method Room Air Oxygen Flow Rate 09/24/25 09:10 09/24/25 09:15 09/24/25 09:15 Temperature Pulse Rate 69 Respiratory Rate 12 Blood Pressure 137/75 137/73 Pulse Oximetry 98 Oxygen Delivery Method Oxygen Flow Rate 09/24/25 09:20 09/24/25 09:20 09/24/25 09:25 Temperature Pulse Rate 68 Respiratory Rate 15 Blood Pressure 133/67 138/75 Pulse Oximetry 99 Oxygen Delivery Method Room Air Oxygen Flow Rate 09/24/25 09:25 09/24/25 09:30 09/24/25 09:35 Temperature Pulse Rate 69 67 Respiratory Rate 19 18 Blood Pressure 126/70 Pulse Oximetry 99 99 Oxygen Delivery Method Oxygen Flow Rate 09/24/25 09:35 09/24/25 09:40 09/24/25 09:40 Temperature Pulse Rate 68 71 Respiratory Rate 15 17 Blood Pressure 131/73 Pulse Oximetry 98 98 Oxygen Delivery Method Room Air Oxygen Flow Rate 09/24/25 09:45 09/24/25 09:45 09/24/25 10:00 Temperature Pulse Rate 71 Respiratory Rate 13 Blood Pressure 134/81 165/75 H Pulse Oximetry 98 Oxygen Delivery Method Oxygen Flow Rate 09/24/25 10:00 09/24/25 10:15 09/24/25 10:15 Temperature Pulse Rate 74 79 Respiratory Rate 20 16 Blood Pressure 158/81 H Pulse Oximetry 97 94 Oxygen Delivery Method Oxygen Flow Rate 09/24/25 10:30 09/24/25 10:30 09/24/25 10:45 Temperature Pulse Rate 78 Respiratory Rate 16 Blood Pressure 146/75 H 146/82 H Pulse Oximetry 96 Oxygen Delivery Method Oxygen Flow Rate 09/24/25 10:45 Temperature Pulse Rate 78 Respiratory Rate 17 Blood Pressure Pulse Oximetry 95 Oxygen Delivery Method Oxygen Flow Rate Oxygen Delivery Method Room Air Oxygen Flow Rate 2 Objective Labs 09/24/25 07:12 09/24/25 07:12 Labs: Laboratory Results - last 24 hr 09/24/25 09/24/25 07:12 09:09 WBC 5.3 RBC 4.22 Hgb 13.8 Hct 41.6 MCV 98.6 MCH 32.8 MCHC 33.3 RDW 14.9 H Plt Count 279 Neut % (Auto) 62.0 Lymph % (Auto) 29.3 Maries % (Auto) 6.4 Eos % (Auto) 1.6 L Baso % (Auto) 0.7 Neut # (Auto) 3300 Lymph # (Auto) 1600 Maries # (Auto) 300 Eos # (Auto) 100 Baso # (Auto) 0 PT 9.7 INR 0.9 APTT 28 Sodium 139 Potassium 3.7 Chloride 106 Carbon Dioxide 23 BUN 14 Creatinine 0.69 Estimated GFR > 60 BUN/Creatinine Ratio 20.3 Glucose 133 H Calcium 10.3 H Magnesium 1.7 Total Bilirubin 0.4 AST 34 ALT 22 Alkaline Phosphatase 101 Total Creatine Kinase 31 Troponin I < 0.012 < 0.012 NT-Pro-B Natriuret Pep 49 Total Protein 8.1 Albumin 4.9 Globulin 3.2 Albumin/Globulin Ratio 1.5 Lipase 50 Assessment & Plan Time-Based Coding :: 35 min spent with patient and on the chart (including review of chart, obtaining history, exam, reviewing outside data, placing orders, documenting exam and treatment plan, and counseling patient) on 09/24. Quality MIPS - Admit I confirm the patient?s Advance Care Plan is present, Code status is documented, Surrogate decision maker is in patient?s record [If Yes, STOP here]: Yes [facility] - Meds 'Current medications' to include all prescriptions, [id number] products, herbals, cannabis/cannabidiol products, and vitamin/mineral/dietary (nutritional) supplements. I have utilized all available resources to obtain, update, or review the patient?s current medications. [If Yes, STOP here]: Yes
--- NOTE | 2025-09-24 12:25 | PC.NURSE ---
1215 81mg ASA not given. Pt received 324 ASA at time of triage.
--- NOTE | 2025-09-24 16:06 | EKG_ITS ---
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
--- NOTE | 2025-09-24 16:17 | PC.NURSE ---
1605 Pt called this nurse to room with chest pain 07/11, pain described as sharp, in the middle of chest. Dr England notified stat orders for sublingual nitro, EKG and 2 mg Morphine IVP. Chest pain began to resolve pain now 03/11, No further needs at this time, call light within reach, care ongoing.
[2025-09-24 16:38] LABS: Troponin I < 0.012 ng/mL (0.01-0.034)
[2025-09-24] MEDS: HEPARIN 5,000 UNIT/ML VIAL 4000 UNIT IV (17:02)
[2025-09-24] MEDS: HEPARIN DRIP 25,000 UNIT/500 ML IV.SOLN 16.329 UNIT IV (17:02)
[2025-09-24] MEDS: NITROGLYCERIN OINT 1 INCH/GM OINT...G. 0.5 INCH TOP (18:47)
[2025-09-24 18:56] LABS: Bilirubin Urine UA NEGATIVE (NEGATIVE); Color Urine UA YELLOW; Glucose Urine UA NEGATIVE (Negative); Ketones Urine UA NEGATIVE (NEGATIVE); Leukocyte Esterase Urine UA 1+ (NEGATIVE); Nitrite Urine UA NEGATIVE (Negative); Occult Blood Urine UA 2+ (Negative); Protein Urine UA NEGATIVE (Negative); Specific Gravity Urine UA 1.020 (1.000-1.035); Urobilinogen Urine UA 0.2 E.U./dL (0.2)
[2025-09-24 18:58] LABS: Appearance Urine UA CLOUDY; pH Urine UA 6.5 (4.5-8.0)
[2025-09-24 19:03] LABS: Culture Indicated Urine Specimen Cultured
[2025-09-24] MEDS: METOPROLOL IR 25 MG TABLET 12.5 MG PO (20:36)
[2025-09-24] MEDS: ATORVASTATIN 20 MG TABLET 40 MG PO (20:36)
[2025-09-24 23:12] LABS: Add Manual Diff / Slide Review NO; Hematocrit 36.5 % (36-46); Hemoglobin 12.3 g/dL (12.0-16.0); Lymphocytes Absolute Auto 1200 /uL (1100-4500); Mean Corpuscular HGB Conc 33.5 % (30-36); Mean Corpuscular Hemoglobin 33.2 PG (26-34); Mean Corpuscular Volume 99.0 fL (80-100); Platelet Count 248 X10^3/uL (150-400)
[2025-09-24 23:35] LABS: INR 1.0 (0.9-1.3); Prothrombin Time 11.2 SECONDS (9.4-12.5)
[2025-09-24 23:37] LABS: PTT Partial Thromboplastin Tim 55 SECONDS (25.1-36.5)
[2025-09-25 00:24] LABS: Troponin I < 0.012 ng/mL (0.01-0.034)
[2025-09-25 01:36] VITALS: BP 165/85; PULSE 65; RESP 17; TEMP 36.6; O2SAT 97
[2025-09-25 03:54] VITALS: BP 154/76; PULSE 79; RESP 18; TEMP 36.6; O2SAT 93
[2025-09-25 05:45] LABS: Hematocrit 37.4 % (36-46); Hemoglobin 12.3 g/dL (12.0-16.0); Platelet Count 226 X10^3/uL (150-400)
[2025-09-25 05:54] LABS: PTT Partial Thromboplastin Tim 46 SECONDS (25.1-36.5)
[2025-09-25] MEDS: HEPARIN 5,000 UNIT/ML VIAL 1700 UNIT IV ×2 (06:45→21:23)
[2025-09-25 08:11] VITALS: BP 157/68; PULSE 71; RESP 14; TEMP 36.8; O2SAT 94
--- NOTE | 2025-09-25 08:14 | DI.ECHO.S_ITS ---
[facility]---------+ [facility] : : [address] : : [place] : : [id number] : : Phone: [phone] Echocardiogram Report + + :Name: MARQUISE CEDEÑO Study Date: 09/25/2025 Height: 63 in : :[facility] ReadingLocation: Weight: 331 lb : : Gender: Female BSA: 2.4 m2 : :: 1945 Age: 80 yrs BP: 157/68 mmHg: :Reason For Study: Chest pain : :Ordering Physician: NATHAN, : :CLINT Resendez Performed By: Sae Polk : :Referring: CLINT EVANS : + + Interpretation Summary 1) MIldly increased left ventricular thickness (concentric) with normal size, normal wall motion, and normal systolic function (EF 60-65%). 2) Normal right ventricular size with low normal function. 3) No significant valvular abnormalities. 4) No prior Echo available for comparison. Procedure: A two-dimensional transthoracic echocardiogram with color flow and Doppler was performed. The study quality was technically adequate. There is no prior echocardiogram noted for this patient. The heart rate ranged between 68-79 bpm during the study. Left Ventricle: The left ventricle is normal in size. There is mild concentric left ventricular hypertrophy. Left ventricular systolic function is normal. The ejection fraction is estimated to be 60-65%. There are no focal wall motion abnormalities. Grade I diastolic dysfunction with normal left atrial pressure. Right Ventricle: The right ventricle is normal size. Right ventricular systolic function is at the lower limits of normal. Atria: The left atrial size is normal. Right atrial size is normal. There is no Doppler evidence for an atrial septal defect. Mitral Valve: The mitral valve leaflets appear to open well. There is no mitral valve stenosis. There is trace mitral regurgitation. Aortic Valve: The aortic valve is trileaflet. The aortic valve opens well. There is no aortic valve stenosis. There is trace aortic regurgitation. Tricuspid Valve: The tricuspid valve leaflets are thin and pliable. There is trace tricuspid regurgitation. The right ventricular systolic pressure is estimated to be at least 25 mmHg based on an estimated right atrial pressure of 3 mm Hg. Pulmonic Valve: The pulmonic valve is not well seen, but is grossly normal. There is trace pulmonic regurgitation. Great Vessels: The aortic root is normal size. The ascending aorta is normal in size. The aortic arch could not be visualized. The pulmonary artery is normal size. The IVC is of normal diameter and collapses greater than 50% with a sniff. This suggests a low right atrial pressure of 3 mm Hg. Pericardium/ Pleura There is no pericardial effusion. MMode/2D Measurements & Calculations LVIDd: 4.1 cm LVOT diam: 2.0 cm LVIDs: 2.8 cm Ao root diam: 3.1 cm FS: 31.1 % asc Aorta Diam: 3.2 cm IVSd: 1.2 cm LVPWd: 1.2 cm LV booth. diameter/BSA (cm/m^2): 1.7 LV sys. diameter/BSA (cm/m^2): 1.2 LA A2 area: 17.2 cm2 RA long axis: 4.9 cm LA A4 area: 19.9 cm2 RA area: 15.2 cm2 LA length (vol): 6.6 cm RA vol: 39.7 ml LA vol: 44.1 ml RA : 16.6 ml/m2 LA vol index: 18.4 ml/m2 IVC diam: 1.3 cm RVD1 (basal): 2.8 cm RVD2 (mid): 2.7 cm TAPSE: 1.7 cm Doppler Measurements & Calculations Ao V2 max: 127.5 cm/sec LVOT Max Dulce: 95.7 cm/sec Ao V2 mean: 88.7 cm/sec LV V1 max P.7 mmHg Ao max P.5 mmHg LV V1 VTI: 23.9 cm Ao mean P.6 mmHg ESTEFANI(I,D): 2.5 cm2 Ao V2 VTI: 29.1 cm ESTEFANI(V,D): 2.3 cm2 sev ratio: 0.82 ESTEFANI indexed to BSA (cm^2/m^2): 1.0 MV E max dulce: 95.0 cm/sec TR max dulce: 234.3 cm/sec MV A max dulce: 92.8 cm/sec TR max P.0 mmHg MV E/A: 1.0 PA V2 max: 85.9 cm/sec Med Peak E' Dulce: 5.5 cm/sec PA V2 mean: 65.9 cm/sec E/E' med: 17.3 PA mean P.9 mmHg Lat Peak E' Dulce: 5.7 cm/sec PA pr(Accel): 48.2 mmHg E/E' lat: 16.7 E/e' average: 17.0 MV dec time: 0.16 sec SV(LVOT): 73.0 ml Qp/Qs (V,Ao): 1.0/5.2 Qp/Qs (V,LVOT): 1.0/1.6 Reading Physician:02:11 PM
[2025-09-25] MEDS: ASPIRIN EC 81 MG TABLET PO (08:23)
[2025-09-25] MEDS: CLOPIDOGREL 75 MG TABLET PO (08:23)
[2025-09-25] MEDS: NITROGLYCERIN OINT 1 INCH/GM OINT...G. 0.5 INCH TOP ×2 (08:23→15:46)
[2025-09-25] MEDS: METOPROLOL IR 25 MG TABLET 12.5 MG PO ×2 (08:23→21:00)
--- NOTE | 2025-09-25 10:53 | PM.CN ---
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 On Saturday morning she felt chest pressure in the left upper chest area which subsequently radiated to her left arm and to the jaw. She felt numb and came to the emergency room. She had no electrical or biochemical evidence of myocardial necrosis however there was a concern for impending acute coronary syndrome. I advised the emergency room to admit her to the hospital for further risk stratification of chest pain. She had a 2nd episode of chest pain this time it was a sharp substernal chest discomfort nonradiating again responded to nitroglycerin. Decision was made to admit her to the hospital to initiate anticoagulant therapy and antiplatelet therapy. I personally called Interventional Cardiology at call at [facility]. Patient in the meanwhile admitted to [facility]. Meds Home Medications and Allergies Home Medications ?Medication ?Instructions ?Recorded ?Confirmed ?Type benazepril 5 mg tablet 5 mg PO DAILY 09/24/25 09/24/25 History felodipine 5 mg tablet,extended 5 mg PO DAILY 09/24/25 09/24/25 History release 24 hr rosuvastatin 5 mg tablet 5 mg PO DAILY 09/24/25 09/24/25 History Allergies Allergy/AdvReac Type Severity Reaction Status Date / Time Iodinated Contrast Media Allergy Severe Hives Verified 09/24/25 07:10 Penicillins Allergy Severe Anaphylaxis Verified 09/24/25 16:56 aspirin Allergy Unknown Verified 09/24/25 07:10 cilastatin Allergy Unknown Verified 09/24/25 07:10 clindamycin Allergy Unknown Verified 09/24/25 07:10 imipenem Allergy Unknown Verified 09/24/25 07:10 levofloxacin (From Levaquin) Allergy Unknown Verified 09/24/25 07:10 NSAIDS (Non-Steroidal Allergy Unknown Verified 09/24/25 07:10 Anti-Inflamma oxycodone Allergy Unknown Verified 09/24/25 07:10 Sulfa (Sulfonamide Allergy Unknown Verified 09/24/25 07:10 Antibiotics) succinylcholine AdvReac Unknown Verified 09/24/25 07:10 Review of Systems Review of Systems ROS: Yes All systems reviewed with the patient and are negative except as otherwise documented Cardiovascular Cardiovascular: Reports chest pain, Reports chest pain at rest and Reports dyspnea on exertion Respiratory Respiratory: Reports dyspnea on exertion Genitourinary Genitourinary: Reports hematuria Comments: History of hematuria and repeat cystoscopy. Musculoskeletal Musculoskeletal: Reports system reviewed and no additional complaints, except as documented Neurologic Comments: Last screening Brain scan almost 10 yrs ago. Hematologic/Lymphatic Comments: facial telengectasia Exam Vital Signs (past 8 hours): - 09/25/25 03:54 09/25/25 07:00 09/25/25 08:11 Temperature 98 F 98.2 F Pulse Rate 79 71 Respiratory Rate 18 14 Blood Pressure 154/76 H 157/68 H Pulse Oximetry 93 94 Oxygen Delivery Method Room Air Oxygen Flow Rate 0 Oxygen Delivery Method Room Air Oxygen Flow Rate 0 Const General: cooperative, healthy appearing, comfortable and well developed HENME Head: normal to inspection Mouth: oral mucosae normal Neck Neck: normal visual inspection and full ROM Chest Chest: normal inspection of the chest and normal palpation of entire chest wall Resp Effort & Inspection: normal respiratory effort and able to speak in complete sentences Auscultation: clear to auscultation bilaterally Cardio Palpation: normal PMI Rate: regular rate Rhythm: regular rhythm Heart Sounds: S1 normal, S2 normal and normal, physiologic split S2 GI Inspection: normal to inspection and abdominal wall ecchymosis Back/Spine/Pelvis Back: normal to inspection Skin Rashes: rashes noted Other: Facial telengectasia Extrem General: normal to inspection Objective ECG Impression: NSR with poor R wave progrssion. Findings consistent with anterior infarct. Age indeterminate. No prior ekg in the system. Labs 09/25/25 05:07 09/24/25 07:12 Labs: Laboratory Results - last 24 hr 09/24/25 09/24/25 09/24/25 16:03 18:25 23:02 WBC 6.9 RBC 3.69 L Hgb 12.3 Hct 36.5 MCV 99.0 MCH 33.2 MCHC 33.5 RDW 14.9 H Plt Count 248 Neut % (Auto) 74.0 Lymph % (Auto) 17.7 L [place] % (Auto) 6.5 Eos % (Auto) 1.3 L Baso % (Auto) 0.5 Neut # (Auto) 5100 Lymph # (Auto) 1200 [place] # (Auto) 500 Eos # (Auto) 100 Baso # (Auto) 0 PT 11.2 INR 1.0 APTT 55 H D Troponin I < 0.012 < 0.012 Urine Color Yellow Urine Appearance Cloudy Urine pH 6.5 Ur Specific [place] 1.020 Urine Protein Negative Urine Glucose (UA) Negative Urine Ketones Negative Urine Occult Blood 2+ H Urine Nitrate Negative Urine Bilirubin Negative Urine Urobilinogen 0.2 Ur Leukocyte Esterase 1+ H Urine RBC 0-1/hpf Urine WBC 5-10/hpf H Ur Squamous Epith Cells None seen Ur Transition Epith Cell 0-1/hpf Urine Bacteria Many (>30) H Urine Mucus 1+ H Ur Culture Indicated? Specimen cultured Vol Urine Centrifuged 10ml (spun) 09/25/25 05:07 WBC RBC Hgb 12.3 Hct 37.4 MCV MCH MCHC RDW Plt Count 226 Neut % (Auto) Lymph % (Auto) [place] % (Auto) Eos % (Auto) Baso % (Auto) Neut # (Auto) Lymph # (Auto) [place] # (Auto) Eos # (Auto) Baso # (Auto) PT INR APTT 46 H D Troponin I Urine Color Urine Appearance Urine pH Ur Specific [place] Urine Protein Urine Glucose (UA) Urine Ketones Urine Occult Blood Urine Nitrate Urine Bilirubin Urine Urobilinogen Ur Leukocyte Esterase Urine RBC Urine WBC Ur Squamous Epith Cells Ur Transition Epith Cell Urine Bacteria Urine Mucus Ur Culture Indicated? Vol Urine Centrifuged [facility] Medical History (Updated 09/25/25 @ 11:48 by Phan San MD) Hereditary hemorrhagic telangiectasia Hypertension HHT (hereditary hemorrhagic telangiectasia) Social History household members: spouse Tobacco & Substance Use Smoking Status: Never smoker alcohol intake: current Diet and Exercise during the past year weight has: remained stable Assessment & Plan Assessment and plan (1) Chest pain: Qualifiers: Chest pain type: unspecified Qualified Code(s): R07.9 - Chest pain, unspecified Status: Acute (2) Hereditary hemorrhagic telangiectasia: Status: Acute (3) Hyperlipidemia: Qualifiers: Hyperlipidemia type: unspecified Qualified Code(s): E78.5 - Hyperlipidemia, unspecified Status: Acute (4) Hypertension: Qualifiers: Hypertension type: unspecified Qualified Code(s): I10 - Essential (primary) hypertension Status: Acute Plan 80-year-old female admitted to the hospital with 2 episodes of nitroglycerin responsive chest pains. She is admitted in the setting of past medical history of hereditary hemorrhagic telangiectasia with a history of recurrent urinary tract bleeding iron deficiency anemia hypertension hyperlipidemia. EKG was abnormal with normal sinus rhythm and evidence of anterior infarct with R-wave delayed progression. No prior EKG was available for comparison. The troponins were unremarkable. 1: Chest pain patient is a 80-year-old with coronary risk factors of hypertension and hyperlipidemia. She had 2 episodes of nitroglycerin responsive chest pains. This makes it very suspicious. Her EKGs abnormal. I advised ER physician to start her on heparin drip however hereditary hemorrhagic telangiectasia was a concern. Antiplatelet therapy was not initiated. If she starts bleeding heparin can be stopped. I plan to transfer her on Saturday morning for emergent coronary angiography at [facility]. I personally called the house repairer and informed zane Myles here at [facility]. Interventional cardiology has also been notified at [facility]. 2; HEREDITARY HEMORRHAGIC TELANGIECTASIA. I HAD A CONVERSATION WITH DR. LORENA Collado. HE RECOMMENDED BRAIN SCREENING AND LUNG SCREENING PRIOR TO CORONARY ANGIOGRAPHY AND ANGIOPLASTY. Patient also has a history of contrast allergies. I will order Solu-Medrol prior to her imaging studies. 3. Hypertension. I advised her to continue with her medications 4> patient has hyperlipidemia and currently on rosuvastatin 5 mg daily. 5. Patient has a micro scopic hematuria. I will continue to observe this closely. I did inform the nurse taking care of the patient. Patient is currently on heparin drip. WILL FOLLOW-UP TOMORROW MORNING. Assessment & Plan narrative: Brain MRI and Lung CT. Continue with heparin drip for now. 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 Will prefer bare metal stents if indicated. No antiplatelts agents now. Time-Based Coding :: [TOTAL MINUTES] spent with patient and on the chart (including review of chart, obtaining history, exam, reviewing outside data, placing orders, documenting exam and treatment plan, and counseling patient) on [DATE].
--- NOTE | 2025-09-25 11:06 | P.PN_ITS ---
Subjective Subjective Date Patient Seen: 09/25/25 Time Patient Seen: 09:10 Interval history: Admission notes: She was a pleasant 80-year-old female with no known history of CAD or OH. She developed acute substernal chest pain with radiation to neck and arm this morning. This was persistent and prompted her to come to the ER. There her pain improved with nitroglycerin and morphine. She notes that she was usually physically active but recently has had more dyspnea with exertion. She was chronic pedal edema. She does not recall stress tests in the past. Her initial troponin and ECG were reassuring in the ED. she does have a history of gastroesophageal reflux, but denies prominent symptoms this morning. She was at rest this morning when the symptoms did occur. She lives in [place] with her . 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 She was given aspirin in the ED. Morphine and nitro given. Chest x-ray unremarkable. ECG nonacute, septal Q- waves. Interim history: 09/25: The patient denies chest pain or shortness of breath since nitroglycerin paste was placed last night. Cardiac enzymes have remained normal. 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 She is followed by Dr. Mp Mathias of Hematology at [facility]. Her last nosebleed was 3 days ago. She uses Afrin nasal spray and PACs are nose with cotton for bleeding. Case is reviewed with Cardiology this morning in detail. She had itching at her right IV site after ceftriaxone was administered yesterday. She notes an anaphylactic reaction to penicillins in the past. Exam Vital Signs (past 8 hours): - 09/25/25 03:54 09/25/25 07:00 09/25/25 08:11 Temperature 98 F 98.2 F Pulse Rate 79 71 Respiratory Rate 18 14 Blood Pressure 154/76 H 157/68 H Pulse Oximetry 93 94 Oxygen Delivery Method Room Air Oxygen Flow Rate 0 Oxygen Delivery Method Room Air Oxygen Flow Rate 0 Narrative Exam Narrative: NAD, alert and oriented, fluent speech, calm. Normocephalic skull, EOMI, anicteric sclera, symmetric pupils. Oropharynx unremarkable, no droop. Neck supple, midline trachea, no adenopathy. Lungs clear, normal rate and effort. Heart regular, no murmur gallop or rub. Abdomen is soft, non distended and non tender. Extremities are free of edema. Skin is free of rash or lesions. Joints are not swollen or deformed. Judgment appears to be normal. Objective Imaging *: Radiologist's impression: Chest xray 09/24/2025: No acute cardiopulmonary abnormality is seen. Labs 09/25/25 05:07 09/24/25 07:12 Labs: Laboratory Results - last 24 hr 09/24/25 09/24/25 09/24/25 16:03 18:25 23:02 WBC 6.9 RBC 3.69 L Hgb 12.3 Hct 36.5 MCV 99.0 MCH 33.2 MCHC 33.5 RDW 14.9 H Plt Count 248 Neut % (Auto) 74.0 Lymph % (Auto) 17.7 L [place] % (Auto) 6.5 Eos % (Auto) 1.3 L Baso % (Auto) 0.5 Neut # (Auto) 5100 Lymph # (Auto) 1200 [place] # (Auto) 500 Eos # (Auto) 100 Baso # (Auto) 0 PT 11.2 INR 1.0 APTT 55 H D Troponin I < 0.012 < 0.012 Urine Color Yellow Urine Appearance Cloudy Urine pH 6.5 Ur Specific [place] 1.020 Urine Protein Negative Urine Glucose (UA) Negative Urine Ketones Negative Urine Occult Blood 2+ H Urine Nitrate Negative Urine Bilirubin Negative Urine Urobilinogen 0.2 Ur Leukocyte Esterase 1+ H Urine RBC 0-1/hpf Urine WBC 5-10/hpf H Ur Squamous Epith Cells None seen Ur Transition Epith Cell 0-1/hpf Urine Bacteria Many (>30) H Urine Mucus 1+ H Ur Culture Indicated? Specimen cultured Vol Urine Centrifuged 10ml (spun) 09/25/25 05:07 WBC RBC Hgb 12.3 Hct 37.4 MCV MCH MCHC RDW Plt Count 226 Neut % (Auto) Lymph % (Auto) [place] % (Auto) Eos % (Auto) Baso % (Auto) Neut # (Auto) Lymph # (Auto) [place] # (Auto) Eos # (Auto) Baso # (Auto) PT INR APTT 46 H D Troponin I Urine Color Urine Appearance Urine pH Ur Specific [place] Urine Protein Urine Glucose (UA) Urine Ketones Urine Occult Blood Urine Nitrate Urine Bilirubin Urine Urobilinogen Ur Leukocyte Esterase Urine RBC Urine WBC Ur Squamous Epith Cells Ur Transition Epith Cell Urine Bacteria Urine Mucus Ur Culture Indicated? Vol Urine Centrifuged [facility] Medical History HHT (hereditary hemorrhagic telangiectasia) Hypertension Social History household members: spouse Smoking Status: Never smoker alcohol intake: current during the past year weight has: remained stable Assessment & Plan Assessment & Plan narrative: 1. Chest pain, improved with nitro and morphine. Stop aspirin and clopidogrel at this point, continue heparin. This can be discontinued if she has nose bleeding. 2. Hereditary hemorrhagic telangiectasia. Consider platelet transfusion if significant bleeding given recent exposure to aspirin and clopidogrel. 3. Urinary tract infection. Stop ceftriaxone given local reaction and history of anaphylaxis to penicillin. Switch to doxycycline next dose tonight. Follow cultures. 4. Hypertension, active. 5. Hyperlipidemia, active. PLAN: -cardiology consultation appreciated, possible catheterization Saturday -heparin infusion, stop aspirin and clopidogrel given bleeding risk -atorvastatin. -trend troponin, negative to date -echo to assess LV function and rule out focal wall motion abnormalities. Anticipate 2 midnights in the hospital, supports observation status. Full resuscitation is proxy. Quality VTE Deep Vein Thrombosis/Pulmonary Embolism Present on Admission: No IH PROFEE Application Performance Engineer Document charge(s): No
[2025-09-25 12:00] VITALS: BP 154/82; PULSE 71; RESP 18; TEMP 36.4; O2SAT 95
--- NOTE | 2025-09-25 12:06 | DI.CT.S_ITS ---
PROCEDURE: CT ANGIO CHEST PE PROTOCOL INDICATIONS: HHT TECHNIQUE: After the administration of intravenous contrast, 2 mm thick sections acquired from the pulmonary apices to the posterior costophrenic angles. 3-dimensional maximum intensity projection (MIP) coronal and sagittal reformats were then acquired through the thorax. For radiation dose reduction, the following was used: automated exposure control, adjustment of mA and/or kV according to patient size. COMPARISON: None. FINDINGS: Image quality: Diagnostic. Pulmonary arteries: Pulmonary arteries are normal in size, and demonstrate no intraluminal filling defects to suggest central pulmonary embolism. Lower Neck: No enlarged lymph nodes. Thyroid: No thyroid nodules which require sonographic follow up, per consensus guidelines. Axillae: No enlarged lymph nodes. Chest Wall: Unremarkable. Bones: Multilevel degenerative changes of the spine.. Lungs and Pleura: No pneumothorax or pleural effusions. No consolidation or suspicious nodules. Heart: Heart size is normal. No pericardial effusion. Thoracic Vessels: No aortic aneurysm. Atherosclerotic vascular calcifications. Mediastinum and Carol: No enlarged lymph nodes. Esophagus: No wall thickening. No hiatal hernia. Upper Abdomen: Visualized upper abdomen solid organs and bowel loops appear normal. IMPRESSION: No pulmonary embolus. No acute cardiopulmonary process. No suspicious pulmonary lesions or findings concerning for arterial venous malformation. Approved by: Ignacio Tracy M.D. on 09/25/2025 at 14:03
[2025-09-25 12:24] LABS: PTT Partial Thromboplastin Tim 51 SECONDS (25.1-36.5)
[2025-09-25] MEDS: HYDROCORTISONE 100 MG/2 ML VIAL INJ (13:01)
--- NOTE | 2025-09-25 13:12 | CM.DANOTE ---
Initial DCP Assessment Note. Review EMR and PT Interview. Met with patient at bedside to discuss discharge needs.PT is alert x 4 sitting up in chair. No acute distress. Patient lives independently with spouse. Payor:[facility] PCP: Summary & Plan: Arrived to ED via POV c/o Chest Pain. Admitted OBS. Dx. Chest Pain, Neg Troponins. Plan: Heparin gtt. Heart Cath Saturday if a [facility] has an open bed. Patient has a bleeding disorder and multi allergies. Heparin gtt might be DC'd. Discharge Planning/Care Management CM Discharge Assessment Start: 09/24/25 12:08 Freq: Status: Active Protocol: Document 09/25/25 13:10 (Rec: 09/25/25 13:12 [id number]) Discharge Planning Assessment Assigned Discharge Chel Antunez RN CM Systems Support Engineer Provider Dr. Hernandez Insurance [facility] Advance Directives? No History Provided By Patient Has Patient been No admitted in last 30 days? Prior Living House Arrangements Household Members spouse Type of Drives own vehicle transporation used prior to admit Independent with ADL Yes 's Is patient alert and Yes oriented? Barriers to No Discharge Discharge Plan Home Transportation Spouse Arrangement Referrals Initiated None needed Review Status In Process Please Provide Date 09/25/25 Initial DC Assessment Was Performed Next Review Type Continued Stay Review
[2025-09-25 18:17] LABS: PTT Partial Thromboplastin Tim 44 SECONDS (25.1-36.5)
[2025-09-25 19:01] VITALS: BP 156/82; PULSE 102; RESP 14; TEMP 36.8; O2SAT 92
--- NOTE | 2025-09-25 19:30 | PC.NURSE ---
at 0612 Heparin gtt was titrated up to 13Units/kg/hr.
[2025-09-25 20:00] VITALS: BP 156/68; PULSE 91; RESP 18; TEMP 36.4; O2SAT 94
[2025-09-25] MEDS: SODIUM CHLORIDE 0.9% FLUSH 10 ML IV (21:00)
[2025-09-25] MEDS: ATORVASTATIN 20 MG TABLET 40 MG PO (21:00)
[2025-09-25] MEDS: DOXYCYCLINE HYCLATE 100 MG TABLET PO (21:00)
[2025-09-25] MEDS: HEPARIN DRIP 25,000 UNIT/500 ML IV.SOLN 19.051 UNIT IV (22:35)
[2025-09-26] VITALS (10 sets, daily range): BP systolic 113–185; BP diastolic 61–119; PULSE 74–95; RESP 16–26; TEMP 36.3–37.1; O2SAT 93–97
[2025-09-26 00:59] LABS: PTT Partial Thromboplastin Tim 60 SECONDS (25.1-36.5)
[2025-09-26 05:06] LABS: Add Manual Diff / Slide Review NO; Hematocrit 37.4 % (36-46); Hemoglobin 12.7 g/dL (12.0-16.0); Lymphocytes Absolute Auto 1400 /uL (1100-4500); Mean Corpuscular HGB Conc 34.1 % (30-36); Mean Corpuscular Hemoglobin 33.4 PG (26-34); Mean Corpuscular Volume 98.0 fL (80-100); Platelet Count 249 X10^3/uL (150-400)
[2025-09-26 05:23] LABS: Blood Urea Nitrogen 13 mg/dL (7-17); Calcium 9.8 mg/dL (8.4-10.2); Carbon Dioxide 25 mmol/L (22-32); Chloride 105 mmol/L (98-107); Estimated Glomerular Filt Rate > 60 mL/min (>60); Glucose 125 mg/dL (70-99); HEMOLYSIS < 15 (0-50); Potassium 3.2 mmol/L (3.4-5.1); Sodium 137 mmol/L (137-145)
[2025-09-26 05:34] LABS: Troponin I < 0.012 ng/mL (0.01-0.034)
--- NOTE | 2025-09-26 07:00 | DI.MRI.S_ITS ---
PROCEDURE: MR HEAD/BRAIN WO CON INDICATIONS: on heparin gtt, check for bleed TECHNIQUE: Non-contrast axial T1 spin echo, axial T2 fast spin echo, sagittal and axial FLAIR, coronal T2 fast spin echo, axial gradient echo, axial diffusion and ADC through the brain. COMPARISON: [facility], CT, CT ANGIO CHEST PE PROTOCOL, 09/25/2025, 13:26. [facility], EC, EC ECHO DOPPLER COMPLETE, 09/25/2025, 10:41. [facility], CT, CT HEAD/BRAIN WO CON, 06/05/2023, 11:04. FINDINGS: Image quality: Excellent. CSF spaces: Ventricles appear symmetric in size and shape. Basal cisterns are patent. No extra-axial fluid collections. Brain: No intracranial bleeds or mass effects. There is cerebral volume loss for age. There are periventricular and deep white matter chronic small vessel ischemic changes. Brainstem appears normal. Diffusion-weighted images show no acute infarct. No chronic ischemic insults. Normal intravascular flow voids are present. Skull and face: Calvarial bone marrow is normal in signal. Orbits are normal. Note is made of bilateral lens replacements. Sinuses: Sinuses and mastoids are clear. IMPRESSION: To the limits of MRI, no findings of acute hemorrhage are seen. If clinically appropriate, please consider a follow-up noncontrast head CT. Dictated by: Cash Gutierrez M.D. on 09/26/2025 at 16:54 Approved by: Cash Gutierrez M.D. on 09/26/2025 at 16:56
[2025-09-26 07:14] LABS: PTT Partial Thromboplastin Tim 55 SECONDS (25.1-36.5)
[2025-09-26] MEDS: DOXYCYCLINE HYCLATE 100 MG TABLET PO ×2 (08:28→20:30)
[2025-09-26] MEDS: METOPROLOL IR 25 MG TABLET 12.5 MG PO ×2 (08:28→20:29)
[2025-09-26] MEDS: SODIUM CHLORIDE 0.9% FLUSH 10 ML IV (08:29)
[2025-09-26] MEDS: NITROGLYCERIN OINT 1 INCH/GM OINT...G. 0.5 INCH TOP ×2 (08:29→16:21)
--- NOTE | 2025-09-26 11:13 | P.PN_ITS ---
Subjective Subjective Date Patient Seen: 09/26/25 Time Patient Seen: 08:45 Interval history: Admission notes: She was a pleasant 80-year-old female with no known history of CAD or RI. She developed acute substernal chest pain with radiation to neck and arm this morning. This was persistent and prompted her to come to the ER. There her pain improved with nitroglycerin and morphine. She notes that she was usually physically active but recently has had more dyspnea with exertion. She was chronic pedal edema. She does not recall stress tests in the past. Her initial troponin and ECG were reassuring in the ED. she does have a history of gastroesophageal reflux, but denies prominent symptoms this morning. She was at rest this morning when the symptoms did occur. She lives in [place] with her . 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 She was given aspirin in the ED. Morphine and nitro given. Chest x-ray unremarkable. ECG nonacute, septal Q- waves. Interim history: 09/25: The patient denies chest pain or shortness of breath since nitroglycerin paste was placed last night. Cardiac enzymes have remained normal. 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 She is followed by Dr. Mp Mathias of Hematology at [facility]. Her last nosebleed was 3 days ago. She uses Afrin nasal spray and PACs are nose with cotton for bleeding. Case is reviewed with Cardiology this morning in detail. She had itching at her right IV site after ceftriaxone was administered yesterday. She notes an anaphylactic reaction to penicillins in the past. 09/26: The patient denies chest pain or bleeding events. She is feeling comfortable. Her chest CT angiogram showed no evidence of pulmonary AVMs. Brain MRI is pending. Case reviewed with Cardiology today. Plan is for transfer to [facility] tomorrow for angiogram and possible interventional treatment, which would include either angioplasty or bare metal stent, avoiding drug-eluting stent due to long-term anticoagulation needs. Exam Vital Signs (past 8 hours): - 09/26/25 04:00 09/26/25 08:18 09/26/25 08:29 Temperature 97.5 F L 98.6 F Pulse Rate 90 95 H 93 H Respiratory Rate 18 24 Blood Pressure 113/61 159/75 H 159/73 H Pulse Oximetry 97 95 Oxygen Flow Rate 0 0 Oxygen Delivery Method Room Air Oxygen Flow Rate 0 Narrative Exam Narrative: NAD, alert and oriented, fluent speech, calm. Normocephalic skull, EOMI, anicteric sclera, symmetric pupils. Oropharynx unremarkable, no droop. Neck supple, midline trachea, no adenopathy. Lungs clear, normal rate and effort. Heart regular, no murmur gallop or rub. Abdomen is soft, non distended and non tender. Extremities are free of edema. Skin is free of rash or lesions. Joints are not swollen or deformed. Judgment appears to be normal. Objective Labs 09/26/25 04:56 09/26/25 04:56 Labs: Laboratory Results - last 24 hr 09/25/25 09/25/25 09/26/25 12:08 18:00 00:27 WBC RBC Hgb Hct MCV MCH MCHC RDW Plt Count Neut % (Auto) Lymph % (Auto) [place] % (Auto) Eos % (Auto) Baso % (Auto) Neut # (Auto) Lymph # (Auto) [place] # (Auto) Eos # (Auto) Baso # (Auto) APTT 51 H 44 H 60 H D Sodium Potassium Chloride Carbon Dioxide BUN Creatinine Estimated GFR BUN/Creatinine Ratio Glucose Calcium Troponin I 09/26/25 09/26/25 04:56 06:56 WBC 7.5 RBC 3.81 L Hgb 12.7 Hct 37.4 MCV 98.0 MCH 33.4 MCHC 34.1 RDW 14.9 H Plt Count 249 Neut % (Auto) 72.1 Lymph % (Auto) 18.6 L [place] % (Auto) 8.0 Eos % (Auto) 0.6 L Baso % (Auto) 0.7 Neut # (Auto) 5400 Lymph # (Auto) 1400 [place] # (Auto) 600 Eos # (Auto) 0 Baso # (Auto) 100 APTT 55 H Sodium 137 Potassium 3.2 L Chloride 105 Carbon Dioxide 25 BUN 13 Creatinine 0.70 Estimated GFR > 60 BUN/Creatinine Ratio 18.6 Glucose 125 H Calcium 9.8 Troponin I < 0.012 [facility] Medical History 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 Chest pain, improved with nitro and morphine. Remaining off aspirin and clopidogrel at this point given HHT bleeding risk, continue heparin infusion to allow to rapidly turn off if bleeding develops. This can be reassessed if she has nasal bleeding. 2. Hereditary hemorrhagic telangiectasia. Stable. Consider platelet transfusion if significant bleeding given recent exposure to aspirin and clopidogrel. 3. Urinary tract infection due to pansensitive E.coli. Continue doxycycline through 09/30. 4. Hypertension, active. 5. Hyperlipidemia, active. PLAN: -cardiology consultation appreciated, transfer for catheterization Saturday at [facility] and subsequent care -heparin infusion, remain off aspirin and clopidogrel given bleeding risk -atorvastatin. -trend troponin, negative to date -doxycycline for UTI -echo to assess LV function and rule out focal wall motion abnormalities. -replete potassium Anticipate 2 midnights in the hospital, supports observation status. Full resuscitation is proxy. Quality VTE Deep Vein Thrombosis/Pulmonary Embolism Present on Admission: No [employer] Document charge(s): No Charge Codes Subsequent inpatient/observation care: [id number]
[2025-09-26] MEDS: POTASSIUM CHLORIDE 20 MEQ TAB 40 MEQ PO (12:33)
--- NOTE | 2025-09-26 13:50 | P.PN_ITS ---
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 Interval history she has reporting no episodes of chest pain. No bleeding per rectum, hematuria epistaxis or hemoptysis. She is currently on heparin drip and nitroglycerin paste. Hemodynamically stable. Exam Vital Signs (past 8 hours): - 09/26/25 08:18 09/26/25 08:29 09/26/25 12:04 Temperature 98.6 F 98.7 F Pulse Rate 95 H 93 H 74 Respiratory Rate 24 26 H Blood Pressure 159/75 H 159/73 H 151/73 H Pulse Oximetry 95 95 Oxygen Flow Rate 0 0 Oxygen Delivery Method Room Air Oxygen Flow Rate 0 Const General: cooperative, healthy appearing, comfortable and well developed [facility] Head: normal to inspection Eyes General: appearance normal, both eyes and all related structures Neck Neck: normal visual inspection and full ROM Chest Chest: normal inspection of the chest Resp Effort & Inspection: normal respiratory effort and able to speak in complete sentences Auscultation: clear to auscultation bilaterally Cardio Palpation: normal PMI Rate: regular rate Rhythm: regular rhythm Heart Sounds: S1 normal and S2 normal GI Inspection: normal to inspection Back/Spine/Pelvis Back: normal to inspection and back tenderness Skin General: no rashes or lesions noted Other: No change. Neuro General: patient alert, patient awake, patient oriented x3 and no meningeal signs Objective ECG Impression: NSR wth anterior infarct age indeterminate. Labs 09/26/25 04:56 09/26/25 04:56 Labs: Laboratory Results - last 24 hr 09/25/25 09/26/25 09/26/25 18:00 00:27 04:56 WBC 7.5 RBC 3.81 L Hgb 12.7 Hct 37.4 MCV 98.0 MCH 33.4 MCHC 34.1 RDW 14.9 H Plt Count 249 Neut % (Auto) 72.1 Lymph % (Auto) 18.6 L [place] % (Auto) 8.0 Eos % (Auto) 0.6 L Baso % (Auto) 0.7 Neut # (Auto) 5400 Lymph # (Auto) 1400 [place] # (Auto) 600 Eos # (Auto) 0 Baso # (Auto) 100 APTT 44 H 60 H D Sodium 137 Potassium 3.2 L Chloride 105 Carbon Dioxide 25 BUN 13 Creatinine 0.70 Estimated GFR > 60 BUN/Creatinine Ratio 18.6 Glucose 125 H Calcium 9.8 Troponin I < 0.012 09/26/25 06:56 WBC RBC Hgb Hct MCV MCH MCHC RDW Plt Count Neut % (Auto) Lymph % (Auto) [place] % (Auto) Eos % (Auto) Baso % (Auto) Neut # (Auto) Lymph # (Auto) [place] # (Auto) Eos # (Auto) Baso # (Auto) APTT 55 H Sodium Potassium Chloride Carbon Dioxide BUN Creatinine Estimated GFR BUN/Creatinine Ratio Glucose Calcium Troponin I [facility] Medical History Hereditary hemorrhagic telangiectasia Hypertension HHT (hereditary hemorrhagic telangiectasia) Social History household members: spouse Smoking Status: Never smoker alcohol intake: current during the past year weight has: remained stable Assessment & Plan Assessment and plan (1) Chest pain: Qualifiers: Chest pain type: unspecified Qualified Code(s): R07.9 - Chest pain, unspecified Status: Acute (2) Hereditary hemorrhagic telangiectasia: Status: Acute (3) Hypertension: Qualifiers: Hypertension type: unspecified Qualified Code(s): I10 - Essential (primary) hypertension Status: Acute (4) Hyperlipidemia: Qualifiers: Hyperlipidemia type: unspecified Qualified Code(s): E78.5 - Hyperlipidemia, unspecified Status: Acute Plan Continue with nitroglycerin paste and heparin drip. Transferred to [facility] for cardiac catheterization. Procedure was explained to the patient. I will obtain consent at [facility]. Assessment & Plan narrative: 80-year-old female admitted to the hospital with 2 episodes of nitroglycerin responsive chest pains. She is admitted in the setting of past medical history of hereditary hemorrhagic telangiectasia with a history of recurrent urinary tract bleeding iron deficiency anemia hypertension hyperlipidemia. EKG was abnormal with normal sinus rhythm and evidence of anterior infarct with R-wave delayed progression. No prior EKG was available for comparison. The troponins were unremarkable. 1: Chest pain patient is a 80-year-old with coronary risk factors of hypertension and hyperlipidemia. She had 2 episodes of nitroglycerin responsive chest pains. This makes it very suspicious. Her EKGs abnormal. I advised ER physician to start her on heparin drip however hereditary hemorrhagic telangiectasia was a concern. Antiplatelet therapy was not initiated. If she starts bleeding heparin can be stopped. I plan to transfer her on Saturday morning for emergent coronary angiography at [facility]. Interventional cardiology has also been notified at [facility]. I explained the procedure to her. Pt wishes to proceed. 2; HEREDITARY HEMORRHAGIC TELANGIECTASIA. I HAD A CONVERSATION WITH DR. LORENA Collado. HE RECOMMENDED BRAIN SCREENING Prior to CORONARY ANGIOGRAPHY AND ANGIOPLASTY. Patient also has a history of contrast allergies. I will order Solu-Medrol prior to her imaging studies. 3. Hypertension. I advised her to continue with her medications 4. Patient has hyperlipidemia and currently on rosuvastatin 5 mg daily. Time-Based Coding :: [TOTAL MINUTES] spent with patient and on the chart (including review of chart, obtaining history, exam, reviewing outside data, placing orders, documenting exam and treatment plan, and counseling patient) on [DATE]. Quality VTE Deep Vein Thrombosis/Pulmonary Embolism Present on Admission: No
[2025-09-26] MEDS: ATORVASTATIN 20 MG TABLET 40 MG PO (20:29)
[2025-09-26] MEDS: HEPARIN DRIP 25,000 UNIT/500 ML IV.SOLN 19.051 UNIT IV (23:37)
[2025-09-27] VITALS (8 sets, daily range): BP systolic 126–179; BP diastolic 77–94; PULSE 62–92; RESP 14–22; TEMP 36.2–37.2; O2SAT 92–95
--- NOTE | 2025-09-27 00:02 | PC.NURSE ---
NPO after midnight for cardiac cath in am
[2025-09-27 05:13] LABS: Add Manual Diff / Slide Review NO; Hematocrit 39.8 % (36-46); Hemoglobin 13.5 g/dL (12.0-16.0); Lymphocytes Absolute Auto 1500 /uL (1100-4500); Mean Corpuscular HGB Conc 34.0 % (30-36); Mean Corpuscular Hemoglobin 33.5 PG (26-34); Mean Corpuscular Volume 98.7 fL (80-100); Platelet Count 244 X10^3/uL (150-400)
[2025-09-27 05:22] LABS: Blood Urea Nitrogen 15 mg/dL (7-17); Calcium 10.0 mg/dL (8.4-10.2); Carbon Dioxide 23 mmol/L (22-32); Chloride 106 mmol/L (98-107); Estimated Glomerular Filt Rate > 60 mL/min (>60); Glucose 123 mg/dL (70-99); HEMOLYSIS < 15 (0-50); Potassium 3.6 mmol/L (3.4-5.1); Sodium 139 mmol/L (137-145)
[2025-09-27 05:30] LABS: PTT Partial Thromboplastin Tim 28 SECONDS (25.1-36.5)
[2025-09-27 05:33] LABS: Troponin I < 0.012 ng/mL (0.01-0.034)
--- NOTE | 2025-09-27 07:50 | PM.DS.1 ---
History of Present Illness History of Present Illness Date Patient Seen: 09/27/25 Chief complaint: Poss Heart Attack, Chest Pain, numbness Discharge Providers Provider Date of admission: 09/24/25 12:07 Primary care physician: Ela Hernandez MD Consults: 09/24/25 11:24 Consult to Cardiology Stat Comment: Consulting Provider: Phan San Reason for consultation: chest pain Has provider been notified: Yes Discharge provider: Mary Goodwin MD Summary Hospital Course Hospital Course: She was a pleasant 80-year-old female with no known history of CAD or [place]. She developed acute substernal chest pain with radiation to neck and arm this morning. This was persistent and prompted her to come to the ER. There her pain improved with nitroglycerin and morphine. She notes that she was usually physically active but recently has had more dyspnea with exertion. She was chronic pedal edema. She does not recall stress tests in the past. Her initial troponin and ECG were reassuring in the ED. she does have a history of gastroesophageal reflux, but denies prominent symptoms this morning. She was at rest this morning when the symptoms did occur. She lives in [place] with her . 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 She was given aspirin in the ED. Morphine and nitro given. Chest x-ray unremarkable. ECG nonacute, septal Q-waves. Interim history: 09/25: The patient denies chest pain or shortness of breath since nitroglycerin paste was placed last night. Cardiac enzymes have remained normal. 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 She is followed by Dr. Mp Mathias of Hematology at [facility]. Her last nosebleed was 3 days ago. She uses Afrin nasal spray and PACs are nose with cotton for bleeding. Case is reviewed with Cardiology this morning in detail. She had itching at her right IV site after ceftriaxone was administered yesterday. She notes an anaphylactic reaction to penicillins in the past. 09/26: The patient denies chest pain or bleeding events. She is feeling comfortable. Her chest CT angiogram showed no evidence of pulmonary AVMs. Brain MRI is pending. Case reviewed with Cardiology today. Plan is for transfer to [facility] tomorrow for angiogram and possible interventional treatment, which would include either angioplasty or bare metal stent, avoiding drug-eluting stent due to long-term anticoagulation needs. Exam Vital Signs (past 8 hours): - 09/26/2504:00 09/26/2508:18 09/26/2508:29 Temperature 97.5 F L 98.6 F Pulse Rate 90 95 H 93 H Respiratory Rate 18 24 Blood Pressure 113/61 159/75 H 159/73 H Pulse Oximetry 97 95 Oxygen Flow Rate 0 0 Oxygen Delivery Method Room Air Oxygen Flow Rate 0 Narrative Exam Narrative: NAD, alert and oriented, fluent speech, calm. Normocephalic skull, EOMI, anicteric sclera, symmetric pupils. Oropharynx unremarkable, no droop. Neck supple, midline trachea, no adenopathy. Lungs clear, normal rate and effort. Heart regular, no murmur gallop or rub. Abdomen is soft, non distended and non tender. Extremities are free of edema. Skin is free of rash or lesions. Joints are not swollen or deformed. Judgment appears to be normal. Objective Labs 09/26/25 04:56 09/26/25 04:56 Labs: Laboratory Results - last 24 hr 09/25/25 09/25/25 09/26/25 12:08 18:00 00:27 WBC RBC Hgb Hct MCV MCH MCHC RDW Plt Count Neut % (Auto) Lymph % (Auto) [place] % (Auto) Eos % (Auto) Baso % (Auto) Neut # (Auto) Lymph # (Auto) [place] # (Auto) Eos # (Auto) Baso # (Auto) APTT 51 H 44 H 60 H D Sodium Potassium Chloride Carbon Dioxide BUN Creatinine Estimated GFR BUN/Creatinine Ratio Glucose Calcium Troponin I 09/26/25 09/26/25 04:56 06:56 WBC 7.5 RBC 3.81 L Hgb 12.7 Hct 37.4 MCV 98.0 MCH 33.4 MCHC 34.1 RDW 14.9 H Plt Count 249 Neut % (Auto) 72.1 Lymph % (Auto) 18.6 L [place] % (Auto) 8.0 Eos % (Auto) 0.6 L Baso % (Auto) 0.7 Neut # (Auto) 5400 Lymph # (Auto) 1400 [place] # (Auto) 600 Eos # (Auto) 0 Baso # (Auto) 100 APTT 55 H Sodium 137 Potassium 3.2 L Chloride 105 Carbon Dioxide 25 BUN 13 Creatinine 0.70 Estimated GFR > 60 BUN/Creatinine Ratio 18.6 Glucose 125 H Calcium 9.8 Troponin I < 0.012 [facility] Medical History 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 Chest pain, improved with nitro and morphine. Remaining off aspirin and clopidogrel at this point given HHT bleeding risk, continue heparin infusion to allow to rapidly turn off if bleeding develops. This can be reassessed if she has nasal bleeding. 2. Hereditary hemorrhagic telangiectasia. Stable. Consider platelet transfusion if significant bleeding given recent exposure to aspirin and clopidogrel. 3. Urinary tract infection due to pansensitive E.coli. Continue doxycycline through 09/30. 4. Hypertension, active. 5. Hyperlipidemia, active. PLAN: -cardiology consultation appreciated, transfer for catheterization Saturday at [facility] and subsequent care -heparin infusion, remain off aspirin and clopidogrel given bleeding risk -atorvastatin. -trend troponin, negative to date -doxycycline for UTI -echo to assess LV function and rule out focal wall motion abnormalities. -replete potassium Anticipate 2 midnights in the hospital, supports observation status. Full resuscitation is proxy. Exam Vital Signs (past 8 hours): - 09/27/25 01:25 09/27/25 04:53 Temperature 98.9 F Pulse Rate 62 92 H Respiratory Rate 14 22 Blood Pressure 179/94 H 173/90 H Pulse Oximetry 95 92 Oxygen Flow Rate 0 Oxygen Delivery Method Room Air Oxygen Flow Rate 0 Objective Labs 09/27/25 04:35 09/27/25 04:35 Labs: Laboratory Results - last 24 hr 09/27/25 04:35 WBC 6.3 RBC 4.03 Hgb 13.5 Hct 39.8 MCV 98.7 MCH 33.5 MCHC 34.0 RDW 15.2 H Plt Count 244 Neut % (Auto) 64.9 Lymph % (Auto) 24.3 L [place] % (Auto) 8.5 Eos % (Auto) 1.6 L Baso % (Auto) 0.7 Neut # (Auto) 4100 Lymph # (Auto) 1500 [place] # (Auto) 500 Eos # (Auto) 100 Baso # (Auto) 0 APTT 28 D Sodium 139 Potassium 3.6 Chloride 106 Carbon Dioxide 23 BUN 15 Creatinine 0.66 Estimated GFR > 60 BUN/Creatinine Ratio 22.7 H Glucose 123 H Calcium 10.0 Troponin I < 0.012 [facility] Medical History Hereditary hemorrhagic telangiectasia Hypertension HHT (hereditary hemorrhagic telangiectasia) Social History household members: spouse Smoking Status: Never smoker alcohol intake: current during the past year weight has: remained stable Discharge Plan Discharge orders & Medications Prescriptions: No Action benazepril 5 mg tablet 5 mg PO DAILY felodipine 5 mg tablet extended release 24 hr 5 mg PO DAILY rosuvastatin 5 mg tablet 5 mg PO DAILY Follow up/Referrals: Ela Hernandez MD [Primary Care Provider, Internal Medicine] Discharge Data Primary Care Provider: Ela Hernandez Quality VTE Deep Vein Thrombosis/Pulmonary Embolism Present on Admission: No
--- NOTE | 2025-09-27 08:17 | PC.NURSE ---
Late Entry Note Patient disconnected from Heparin gtt at 1700 for MRI and restarted at 1800, okay by MD San.
[2025-09-27] MEDS: HEPARIN 5,000 UNIT/ML VIAL 4100 UNIT IV (08:33)
[2025-09-27] MEDS: METOPROLOL IR 25 MG TABLET 12.5 MG PO ×2 (08:34→21:15)
[2025-09-27] MEDS: DOXYCYCLINE HYCLATE 100 MG TABLET PO ×2 (08:36→21:15)
[2025-09-27] MEDS: NITROGLYCERIN OINT 1 INCH/GM OINT...G. 0.5 INCH TOP ×2 (08:36→17:04)
[2025-09-27] MEDS: SODIUM CHLORIDE 0.9% FLUSH 10 ML IV ×2 (08:36→21:15)
--- NOTE | 2025-09-27 12:01 | CM.DPNOTE ---
DCP note MATERNITY NURSE reviewed EMR per RN/rn relief charge/provider, plan remains to transfer to [facility] for heart cath pending beds. no further CM needs at this time. will continue to follow in case additional needs should arise REENA Leal
[2025-09-27 13:16] LABS: PTT Partial Thromboplastin Tim 66 SECONDS (25.1-36.5)
--- NOTE | 2025-09-27 18:04 | PM.PN.1 ---
Subjective Subjective Date Patient Seen: 09/27/25 Interval history: She was a pleasant 80-year-old female with no known history of CAD or MA. She developed acute substernal chest pain with radiation to neck and arm this morning. This was persistent and prompted her to come to the ER. There her pain improved with nitroglycerin and morphine. She notes that she was usually physically active but recently has had more dyspnea with exertion. She was chronic pedal edema. She does not recall stress tests in the past. Her initial troponin and ECG were reassuring in the ED. she does have a history of gastroesophageal reflux, but denies prominent symptoms this morning. She was at rest this morning when the symptoms did occur. She lives in [place] with her . 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 She was given aspirin in the ED. Morphine and nitro given. Chest x-ray unremarkable. ECG nonacute, septal Q-waves. Interim history: 09/25: The patient denies chest pain or shortness of breath since nitroglycerin paste was placed last night. Cardiac enzymes have remained normal. 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 She is followed by Dr. Mp Mathias of Hematology at [facility]. Her last nosebleed was 3 days ago. She uses Afrin nasal spray and PACs are nose with cotton for bleeding. Case is reviewed with Cardiology this morning in detail. She had itching at her right IV site after ceftriaxone was administered yesterday. She notes an anaphylactic reaction to penicillins in the past. 09/26: The patient denies chest pain or bleeding events. She is feeling comfortable. Her chest CT angiogram showed no evidence of pulmonary AVMs. Brain MRI is pending. Case reviewed with Cardiology today. Plan is for transfer to [facility] tomorrow for angiogram and possible interventional treatment, which would include either angioplasty or bare metal stent, avoiding drug-eluting stent due to long-term anticoagulation needs. 09/27: She remains chest pain-free and is not having any nosebleeds. Unfortunately the ED flow through at the hospital in [place] where she will be having her heart catheterization has been to heavy to allow her to be transferred today. The CBC, BNP and troponin are normal. The brain MRI is normal. The echocardiogram shows 60-65% ejection fraction. Assessment & Plan Assessment & Plan narrative: 1. Chest pain, improved with nitro and morphine. Remaining off aspirin and clopidogrel at this point given T bleeding risk, continue heparin infusion to allow to rapidly turn off if bleeding develops. This can be reassessed if she has nasal bleeding. 2. Hereditary hemorrhagic telangiectasia. Stable. Consider platelet transfusion if significant bleeding given recent exposure to aspirin and clopidogrel. 3. Urinary tract infection due to pansensitive E.coli. Continue doxycycline through 09/30. 4. Hypertension, active. 5. Hyperlipidemia, active. PLAN: -cardiology consultation appreciated, transfer for catheterization ÁNGELA at [facility] and subsequent care -heparin infusion, remain off aspirin and clopidogrel given bleeding risk -atorvastatin. -trend troponin, negative to date -doxycycline for UTI (sensitivities to tetracycline confirmed) -echo normal EF -replete potassium Full resuscitation is proxy. Exam Vital Signs (past 8 hours): - 09/27/25 12:00 09/27/25 16:00 Temperature 97.7 F 97.1 F L Pulse Rate 79 81 Respiratory Rate 18 16 Blood Pressure 134/85 126/87 Pulse Oximetry 94 94 Oxygen Flow Rate 0 0 Oxygen Delivery Method Room Air Oxygen Flow Rate 0 Narrative Exam Narrative: Alert and oriented x3. No apparent distress. Heart is regular rate and rhythm without murmur. Lungs are clear to auscultation bilaterally. Extremities have no ankle edema. Widespread facial telangiectasias seen. Objective Labs 09/27/25 04:35 09/27/25 04:35 Labs: Laboratory Results - last 24 hr 09/27/25 09/27/25 04:35 12:47 WBC 6.3 RBC 4.03 Hgb 13.5 Hct 39.8 MCV 98.7 MCH 33.5 MCHC 34.0 RDW 15.2 H Plt Count 244 Neut % (Auto) 64.9 Lymph % (Auto) 24.3 L [place] % (Auto) 8.5 Eos % (Auto) 1.6 L Baso % (Auto) 0.7 Neut # (Auto) 4100 Lymph # (Auto) 1500 [place] # (Auto) 500 Eos # (Auto) 100 Baso # (Auto) 0 APTT 28 D 66 H D Sodium 139 Potassium 3.6 Chloride 106 Carbon Dioxide 23 BUN 15 Creatinine 0.66 Estimated GFR > 60 BUN/Creatinine Ratio 22.7 H Glucose 123 H Calcium 10.0 Troponin I < 0.012 [facility] Medical History Hereditary hemorrhagic telangiectasia Hypertension HHT (hereditary hemorrhagic telangiectasia) Social History household members: spouse Smoking Status: Never smoker alcohol intake: current during the past year weight has: remained stable Assessment & Plan Time-Based Coding :: [TOTAL MINUTES] spent with patient and on the chart (including review of chart, obtaining history, exam, reviewing outside data, placing orders, documenting exam and treatment plan, and counseling patient) on [DATE]. Quality VTE Deep Vein Thrombosis/Pulmonary Embolism Present on Admission: No
[2025-09-27] MEDS: ATORVASTATIN 20 MG TABLET 40 MG PO (21:15)
[2025-09-27 22:21] LABS: PTT Partial Thromboplastin Tim 38 SECONDS (25.1-36.5)
[2025-09-28 03:00] VITALS: BP 162/85; PULSE 97; RESP 18; TEMP 37.6; O2SAT 94
[2025-09-28] MEDS: HEPARIN DRIP 25,000 UNIT/500 ML IV.SOLN 17.69 UNIT IV (04:00)
[2025-09-28 05:30] LABS: PTT Partial Thromboplastin Tim 51 SECONDS (25.1-36.5)
--- NOTE | 2025-09-28 06:30 | PC.NURSE ---
pt A&Ox4, up with assist to bathroom, denied pain, SR in 80s, heparin gtt per protocol, bruising noted at IV site and from lab draws, pt states not BM since , did not want any softeners overnight, pt expressed concerns about getting transferred to a different hospital other than [facility] for her heart cath, assistant professor of nursing discussed process with pt and she stated she was ok to go elsewhere as long as Dr. San discussed her case with the doctors taking over, meds and labs as ordered, call [facility] within reach, care on going
[2025-09-28 07:00] VITALS: BP 154/87; PULSE 85; RESP 18; TEMP 36.4; O2SAT 96
--- NOTE | 2025-09-28 08:26 | PM.PN.1 ---
Subjective Subjective Date Patient Seen: 09/28/25 Interval history: She was a pleasant 80-year-old female with no known history of CAD or HI. She developed acute substernal chest pain with radiation to neck and arm this morning. This was persistent and prompted her to come to the ER. There her pain improved with nitroglycerin and morphine. She notes that she was usually physically active but recently has had more dyspnea with exertion. She was chronic pedal edema. She does not recall stress tests in the past. Her initial troponin and ECG were reassuring in the ED. she does have a history of gastroesophageal reflux, but denies prominent symptoms this morning. She was at rest this morning when the symptoms did occur. She lives in [place] with her . 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 She was given aspirin in the ED. Morphine and nitro given. Chest x-ray unremarkable. ECG nonacute, septal Q-waves. Interim history: 09/25: The patient denies chest pain or shortness of breath since nitroglycerin paste was placed last night. Cardiac enzymes have remained normal. 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 She is followed by Dr. Mp Mathias of Hematology at [facility]. Her last nosebleed was 3 days ago. She uses Afrin nasal spray and PACs are nose with cotton for bleeding. Case is reviewed with Cardiology this morning in detail. She had itching at her right IV site after ceftriaxone was administered yesterday. She notes an anaphylactic reaction to penicillins in the past. 09/26: The patient denies chest pain or bleeding events. She is feeling comfortable. Her chest CT angiogram showed no evidence of pulmonary AVMs. Brain MRI is pending. Case reviewed with Cardiology today. Plan is for transfer to [facility] tomorrow for angiogram and possible interventional treatment, which would include either angioplasty or bare metal stent, avoiding drug-eluting stent due to long-term anticoagulation needs. 09/27: She remains chest pain-free and is not having any nosebleeds. Unfortunately the ED flow through at the hospital in [place] where she will be having her heart catheterization has been to heavy to allow her to be transferred today. The CBC, BNP and troponin are normal. The brain MRI is normal. The echocardiogram shows 60-65% ejection fraction. Assessment & Plan Assessment & Plan narrative: 1. Chest pain, improved with nitro and morphine. Remaining off aspirin and clopidogrel at this point given HHT bleeding risk, continue heparin infusion to allow to rapidly turn off if bleeding develops. This can be reassessed if she has nasal bleeding. 2. Hereditary hemorrhagic telangiectasia. Stable. Consider platelet transfusion if significant bleeding given recent exposure to aspirin and clopidogrel. 3. Urinary tract infection due to pansensitive E.coli. Continue doxycycline through 09/30. 4. Hypertension, active. 5. Hyperlipidemia, active. PLAN: -cardiology consultation appreciated, transfer for catheterization ÁNGELA at [facility] and subsequent care -heparin infusion, remain off aspirin and clopidogrel given bleeding risk -atorvastatin. -trend troponin, negative to date -doxycycline for UTI (sensitivities to tetracycline confirmed) -echo normal EF -replete potassium Full resuscitation is proxy. Exam Vital Signs (past 8 hours): - 09/28/25 03:00 Temperature 99.7 F H Pulse Rate 97 H Respiratory Rate 18 Blood Pressure 162/85 H Pulse Oximetry 94 Oxygen Flow Rate 0 Oxygen Delivery Method Room Air Oxygen Flow Rate 0 Objective Labs 09/27/25 04:35 09/27/25 04:35 Labs: Laboratory Results - last 24 hr 09/27/25 09/27/25 09/28/25 12:47 21:45 05:00 APTT 66 H D 38 H D 51 H D [facility] Medical History Hereditary hemorrhagic telangiectasia Hypertension HHT (hereditary hemorrhagic telangiectasia) Social History household members: spouse Smoking Status: Never smoker alcohol intake: current during the past year weight has: remained stable Assessment & Plan Time-Based Coding :: [TOTAL MINUTES] spent with patient and on the chart (including review of chart, obtaining history, exam, reviewing outside data, placing orders, documenting exam and treatment plan, and counseling patient) on [DATE]. Quality VTE Deep Vein Thrombosis/Pulmonary Embolism Present on Admission: No
--- NOTE | 2025-09-28 09:37 | CM.DPNOTE ---
Addendum entered by REENA Leal 09/28/25 10:41: per team in morning rounds, accepted at . working on transfer. no further CM needs at this time SL Original Note: DCP note DIRECTOR OF COMPLIANCE reviewed EMR per chart, unable to be transferred yesterday due to bed availability per RN, reports no chest pain, no increase in tropes, and remains on the hep drip. pt will either have to 1) transfer for heart cath or 2) if stable, dc home and f/u in OP setting P: medical POC pending bed availability for heart cath transfer. if home, anticipate home with spouse no CM needs. will continue to follow in case any DCP needs should arise REENA Leal
[2025-09-28] MEDS: METOPROLOL IR 25 MG TABLET 12.5 MG PO (09:52)
[2025-09-28] MEDS: NITROGLYCERIN OINT 1 INCH/GM OINT...G. 0.5 INCH TOP (09:53)
[2025-09-28] MEDS: DOXYCYCLINE HYCLATE 100 MG TABLET PO (09:53)
[2025-09-28 11:00] VITALS: BP 151/81; PULSE 79; RESP 17; TEMP 36.4; O2SAT 95
--- NOTE | 2025-09-28 11:01 | P.DS_ITS ---
History of Present Illness History of Present Illness Date Patient Seen: 09/28/25 Chief complaint: Poss Heart Attack, Chest Pain, numbness Narrative: She was a pleasant 80-year-old female with no known history of CAD or AL. She developed acute substernal chest pain with radiation to neck and arm this morning. This was persistent and prompted her to come to the ER. There her pain improved with nitroglycerin and morphine. She notes that she was usually physically active but recently has had more dyspnea with exertion. She was chronic pedal edema. She does not recall stress tests in the past. Her initial troponin and ECG were reassuring in the ED. she does have a history of gastroesophageal reflux, but denies prominent symptoms this morning. She was at rest this morning when the symptoms did occur. She lives in [place] with her . 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 She was given aspirin in the ED. ED: Morphine and nitro given. Chest x-ray unremarkable. ECG nonacute, septal Q-waves. 16: 00: Recurrent chest pain no dramatic ECG changes on repeat ECG. Discussed with Dr. San after nitro paste was started and she became chest pain free. He recommends dual antiplatelet therapy and heparin drip. We will also start beta blockade and anticipate medical treatment over the weekend with transfer to [facility] for angiogram Saturday. She will be transferred sooner if her clinical condition deteriorates. Discharge Providers Provider Date of admission: 09/24/25 12:07 Discharge Date: 09/28/25 Primary care physician: Ela Hernandez MD Consults: 09/24/25 11:24 Consult to Cardiology Stat Comment: Consulting Provider: Phan San Reason for consultation: chest pain Has provider been notified: Yes Discharge provider: Mary Goodwin MD Summary Hospital Course Hospital Course: Interim history: 09/25: The patient denies chest pain or shortness of breath since nitroglycerin paste was placed last night. Cardiac enzymes have remained normal. 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 She is followed by Dr. Mp Mathias of Hematology at [facility]. Her last nosebleed was 3 days ago. She uses Afrin nasal spray and PACs are nose with cotton for bleeding. Case is reviewed with Cardiology this morning in detail. She had itching at her right IV site after ceftriaxone was administered yesterday. She notes an anaphylactic reaction to penicillins in the past. 09/26: The patient denies chest pain or bleeding events. She is feeling comfortable. Her chest CT angiogram showed no evidence of pulmonary AVMs. Brain MRI is pending. Case reviewed with Cardiology today. Plan is for transfer to [facility] tomorrow for angiogram and possible interventional treatment, which would include either angioplasty or bare metal stent, avoiding drug-eluting stent due to long-term anticoagulation needs. 09/27: She remains chest pain-free and is not having any nosebleeds. Unfortunately the ED flow through at the hospital in [place] where she will be having her heart catheterization has been to heavy to allow her to be transferred today. The CBC, BNP and troponin are normal. The brain MRI is normal. The echocardiogram shows 60-65% ejection fraction. 09/28: Since the nitro paste was applied and the heparin drip was started she has not had recurrence of her left-sided chest pain. None of the local hospitals that do cardiac angiograms have had space for her so [facility], where her telangiectasia specialist works at, and they accepted her in transfer today. 1. Chest pain, improved with nitro and morphine. Remaining off aspirin and clopidogrel at this point given HHT bleeding risk, continue heparin infusion to allow to rapidly turn off if bleeding develops. This can be reassessed if she has nasal bleeding. 2. Hereditary hemorrhagic telangiectasia. Stable. Consider platelet transfusion if significant bleeding given recent exposure to aspirin and clopidogrel. 3. Urinary tract infection due to pansensitive E.coli. (confirmed sensitive to Tetracycline) Continue doxycycline through 09/30. 4. Hypertension 5. Hyperlipidemia -cardiology consultation (Dr. San) appreciated, transfer for catheterization at [facility] -heparin infusion, remain off aspirin and clopidogrel given bleeding risk -atorvastatin. -serial troponin negative to date -doxycycline for UTI (sensitivities to tetracycline confirmed) -echo normal EF Full resuscitation Status at Discharge Cognitive/behavioral status at discharge: at baseline, oriented Functional status at discharge: independent ambulation Overall status at discharge: patient is not back to baseline Time Spent with Patient Time spent: Greater than 30 minutes Exam Vital Signs (past 8 hours): - 09/28/25 07:00 Temperature 97.6 F Pulse Rate 85 Respiratory Rate 18 Blood Pressure 154/87 H Pulse Oximetry 96 Oxygen Flow Rate 0 Oxygen Delivery Method Room Air Oxygen Flow Rate 0 Narrative Exam Narrative: Alert and oriented x3. No apparent distress. Heart is regular rate and rhythm without murmur. Lungs are clear to auscultation bilaterally. Extremities have no ankle edema. Abdomen is soft, bowel sounds positive, nontender, no organomegaly. Nitroglycerin patch is noted. Objective Labs 09/27/25 04:35 09/27/25 04:35 Labs: Laboratory Results - last 24 hr 09/27/25 09/27/25 09/28/25 12:47 21:45 05:00 APTT 66 H D 38 H D 51 H D [facility] Medical History Hereditary hemorrhagic telangiectasia Hypertension HHT (hereditary hemorrhagic telangiectasia) Social History household members: spouse Smoking Status: Never smoker alcohol intake: current during the past year weight has: remained stable Discharge Plan Discharge Plan Patient Disposition: [facility] Other facility: [facility] Under care of provider: Dr. Singh Diet/Activity/Treatments Diet: Diet as Tolerated Liquid consistency: Normal/Thin Food texture: Regular Discharge Data Primary Care Provider: Ela Hernandez VTE Deep Vein Thrombosis/Pulmonary Embolism Present on Admission: No
[2025-09-28 11:02] LABS: Add Manual Diff / Slide Review NO; Hematocrit 39.7 % (36-46); Hemoglobin 13.4 g/dL (12.0-16.0); Lymphocytes Absolute Auto 1000 /uL (1100-4500); Mean Corpuscular HGB Conc 33.8 % (30-36); Mean Corpuscular Hemoglobin 33.2 PG (26-34); Mean Corpuscular Volume 98.2 fL (80-100); Platelet Count 233 X10^3/uL (150-400)
[2025-09-28 11:11] LABS: PTT Partial Thromboplastin Tim 53 SECONDS (25.1-36.5)
--- NOTE | 2025-09-28 14:52 | PC.NURSE ---
Transfer Note Pt transferred to [facility] via ambulance at approx 1150. All belongings with pt including clothing and cell phone. Heparin gtt infusing. Report called to Fer MYERS at , all questions answered. Information packet with transport team.
== END 2025-09-28 11:50 | disposition short-term general hospital (02) | DRG 313 ==
LOC: ED 11:13 → AC 12:14
PROVIDERS: Family Medicine; Internal Medicine; Internal Medicine Cardiovascular Disease; Admitting Provider Hospitalist; Emergency Provider Emergency Medicine; PCP Student in an Organized Health Care Education/Training Program; Referring Provider Emergency Medicine; Visit Provider Hospitalist
DX: R07.9 Chest pain, unspecified (principal); N39.0 Urinary tract infection, site not specified; I78.0 Hereditary hemorrhagic telangiectasia; Z91.041 Radiographic dye allergy status; I10 Essential (primary) hypertension; E78.5 Hyperlipidemia, unspecified; R31.29 Other microscopic hematuria; Z88.0 Allergy status to penicillin; B96.20 Unspecified Escherichia coli [E. coli] as the cause of diseases classified elsewhere
CPT/HCPCS: 36415; 70551; 71045; 71275; 80048; 80053; 81001; 82550; 83690; 83735; 83880; 84484; 85014; 85018; 85025; 85049; 85610; 85730; 87077; 87086; 87186; 93005; 93010; 93306; 96374; 99284; J0696; J1644; J1720; J2270; J7050; Q9967